=== PATIENT | female | born 2005 | race Caucasian/White ===

== ENCOUNTER 2023-03-31 09:53 | Emergency (ER) | payer OTHER, SELFPAY ==
[2023-03-31 10:01] VITALS: BP 148/90; PULSE 83; RESP 16; TEMP 36.6; O2SAT 99; BMI 34.7
--- NOTE | 2023-03-31 10:07 | US_ITS ---
[address] [address] Patient Name: FELIX ASKEW MRN: [id number] date: 2005 Sex: F Assigned Patient Location: ED.MAIN Current Patient Location: ER Accession/Order Number: [id number] Exam Date: 03/31/2023 10:08 Report Date: 03/31/2023 10:47 At the request of: BENIGNO LAY Procedure: US OB limited EXAMINATION: US OB limited HISTORY: fall , abdominal cramping COMPARISON: 02/05/2023 FINDINGS: position: Cephalic Placenta: Posterior. Grade 0. No intraplacental or retroplacental echogenic abnormality to suggest abruption or hemorrhage Heart rate: 140 bpm Clinical age: 16 weeks 2 days Clinical JOSHUA: 09/13/2023 IMPRESSION: No placental abnormality observed Electronically authenticated by: TAMMI HAQUE Date: 03/31/2023 10:47
[2023-03-31 10:23] LABS: Bilirubin Urine NEGATIVE (NEGATIVE); Blood Urine NEGATIVE (NEGATIVE); Clarity Urine CLEAR (CLEAR); Color Urine LT. YELLOW (YELLOW); Glucose Urine UA NEGATIVE (NEGATIVE); Ketones Urine NEGATIVE (NEGATIVE); Leukocyte Esterase Urine NEGATIVE (NEGATIVE); Nitrite Urine NEGATIVE (NEGATIVE); Protein Urine NEGATIVE (NEG/TRACE); Urobilinogen Urine 0.2 EU/dL (0.2-1.0); pH Urine 7.5 (5.0-9.0)
[2023-03-31 10:24] LABS: Urine Microscopic Indicated NO
--- NOTE | 2023-03-31 10:56 | ED_ITS ---
HPI - Fall General Chief Complaint: Abdominal Pain Stated Complaint: FELL AT WORK LAST NIGHT/ Time Seen by Provider: 03/31/23 10:56 Source: patient Mode of arrival: walk-in Limitations: no limitations History of Present Illness HPI Narrative: this patient is here for evaluation. 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 She fell to her left side and hit the hip and the left elbow. She wanted come in today because she wanted to make sure her baby was okay. She does not believe she sustained any injury and really has no complaints today. She said her elbow really doesn't hurt. She's not having any vaginal bleeding or spotting. She is approximate sixteen weeks and is under the care of a local BUSINESS SERVICES REPRESENTATIVE has not had any complications. She says she just has anxiety and wanted to be sure there is no injury or harm due to the fall yesterday. 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 No evidence craniofacial trauma or injury cognition is normal she does not seem overly anxious. chest wall and ribs are nontender. Extremities so completely unrestricted atraumatic nontender range of motion of the left elbow forearm and shoulder. Abdomen is soft and supple. Left hip area shows no bruises contusions or abrasions. 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 But none of these bruises are new. Constitutional Vital Signs - 24 hr 03/31/23 10:01 Temperature 97.8 F Pulse Rate [Monitor] 83 Respiratory Rate 16 Blood Pressure [Right Arm] 148/90 H Pulse Oximetry 99 Oxygen Delivery Method Room Air Course Vital Signs Vital signs: Vital Signs Temperature 97.8 F 03/31/23 10:01 Pulse Rate 83 03/31/23 10:01 Respiratory Rate 16 03/31/23 10:01 Blood Pressure 148/90 H 03/31/23 10:01 Pulse Oximetry 99 03/31/23 10:01 Oxygen Delivery Method Room Air 03/31/23 10:01 Temperature 97.8 F 03/31/23 10:01 Pulse Rate 83 03/31/23 10:01 Respiratory Rate 16 03/31/23 10:01 Blood Pressure 148/90 H 03/31/23 10:01 Pulse Oximetry 99 03/31/23 10:01 Oxygen Delivery Method Room Air 03/31/23 10:01 MDM - Fall MDM Narrative Medical decision making narrative: pelvic ultrasound was done and shows/confirms intrauterine sixteen weeks in two days with no complications or abnormalities on the ultrasound. A urinalysis was done to rule out asymptomatic bacteriuria and the urinalysis is also normal. She was reassured she can resume normal activities and follow-up with BUSINESS SERVICES REPRESENTATIVE on an as-needed basis. Lab Data Labs: Lab Results 03/31/23 Range/Units 10:15 Urine Color Lt. yellow (YELLOW) Urine Clarity Clear (CLEAR) Urine pH 7.5 (5.0-9.0) Ur Specific [place] 1.010 (1.005-1.025) Urine Protein Negative (NEG/TRACE) mg/dL Urine Glucose (UA) Negative (NEGATIVE) mg/dL Urine Ketones Negative (NEGATIVE) mg/dL Urine Occult Blood Negative (NEGATIVE) Urine Nitrite Negative (NEGATIVE) Urine Bilirubin Negative (NEGATIVE) Urine Urobilinogen 0.2 (0.2-1.0) EU/dL Ur Leukocyte Esterase Negative (NEGATIVE) Discharge Plan Discharge Chief Complaint: Abdominal Pain Clinical Impression: Intrauterine normal Patient Disposition: Home, Self-Care Time of Disposition Decision: 11:00 Stand Alone Forms: Portal Instructions Referrals: Physician,Non-Staff, MD [Primary Care Provider] - 1 week
== END 2023-03-31 11:08 | disposition home or self-care (01) ==
PROVIDERS: Emergency Provider Emergency Medicine Emergency Medical Services
DX: Z04.3 Encounter for examination and observation following other accident (principal)
CPT/HCPCS: 76815; 81003; 99284

== ENCOUNTER 2023-05-06 08:28 | Outpatient (OUT) | payer OTHER, SELFPAY ==
--- NOTE | 2023-05-06 | US_ITS ---
[address] [address] Patient Name: FELIX ASKEW MRN: [id number] date: 2005 Sex: F Assigned Patient Location: US Current Patient Location: US Accession/Order Number: [id number] Exam Date: 05/06/2023 08:31 Report Date: 05/06/2023 09:33 At the request of: GAVIN WINTERS Procedure: US OB transvaginal EXAMINATION: US OB anatomy, US OB transvaginal HISTORY: ANATOMY COMPARISON: No relevant comparison available. TECHNIQUE: Transabdominal sonographic examination was performed for obstetrical and evaluation. FINDINGS: Number: 1 Heart Rate: 156.0 bpm H.B. /min position: Breech presentation, longitudinal lie Amniotic Fluid Volume: Subjectively normal Placental Location: Posterior, placental edge 1.9 cm from the internal os. Grade 0 Cervix Length: 5.7 cm, closed Normal anatomy: Lateral ventricles, cerebellum, posterior fossa, nose/lips, orbits, four-chamber heart, RVOT, LVOT, diaphragm, stomach, kidneys, abdominal cord insertion, bladder, umbilical cord arteries, three-vessel cord, spine, extremities BIOMETRY: BPD: 5.0 cm 21 weeks 0 days , 30% HC: 18.8 cm 21 weeks 1 days, 27% AC: 16.9 cm 21 weeks 6 days, 58% FL: 3.7 cm 21 weeks 4 days, 48% EFW:442.4 grams; 1 lb. 0 oz., 58% FL/AC: 21.7 FL/BPD: 73.9 HC/AC: 1.1 GESTATIONAL AGE: Age by EDC: 21 weeks 3 days JOSHUA by EDC: 09/13/2023 Age by current US: 21 weeks 3 days JOSHUA by current US: 09/13/2023 US/US OB transvaginal IMPRESSION: Low lying placenta, otherwise normal anatomy scan *Reference: [employer] Practice Guideline for the performance of Obstetric Ultrasound Examinations, July 12, 2007. Electronically authenticated by: TAMMI HAQUE Date: 05/06/2023 09:33
--- NOTE | 2023-05-06 | US_ITS ---
[address] [address] Patient Name: FELIX ASKEW MRN: [id number] date: 2005 Sex: F Assigned Patient Location: US Current Patient Location: US Accession/Order Number: [id number] Exam Date: 05/06/2023 08:31 Report Date: 05/06/2023 09:33 At the request of: GAVIN WINTERS Procedure: US OB anatomy EXAMINATION: US OB anatomy, US OB transvaginal HISTORY: ANATOMY COMPARISON: No relevant comparison available. TECHNIQUE: Transabdominal sonographic examination was performed for obstetrical and evaluation. FINDINGS: Number: 1 Heart Rate: 156.0 bpm H.B. /min position: Breech presentation, longitudinal lie Amniotic Fluid Volume: Subjectively normal Placental Location: Posterior, placental edge 1.9 cm from the internal os. Grade 0 Cervix Length: 5.7 cm, closed Normal anatomy: Lateral ventricles, cerebellum, posterior fossa, nose/lips, orbits, four-chamber heart, RVOT, LVOT, diaphragm, stomach, kidneys, abdominal cord insertion, bladder, umbilical cord arteries, three-vessel cord, spine, extremities BIOMETRY: BPD: 5.0 cm 21 weeks 0 days , 30% HC: 18.8 cm 21 weeks 1 days, 27% AC: 16.9 cm 21 weeks 6 days, 58% FL: 3.7 cm 21 weeks 4 days, 48% EFW:442.4 grams; 1 lb. 0 oz., 58% FL/AC: 21.7 FL/BPD: 73.9 HC/AC: 1.1 GESTATIONAL AGE: Age by EDC: 21 weeks 3 days JOSHUA by EDC: 09/13/2023 Age by current US: 21 weeks 3 days JOSHUA by current US: 09/13/2023 US/US OB anatomy IMPRESSION: Low lying placenta, otherwise normal anatomy scan *Reference: [facility] Practice Guideline for the performance of Obstetric Ultrasound Examinations, July 12, 2007. Electronically authenticated by: TAMMI HAQUE Date: 05/06/2023 09:33
== END 2023-05-06 08:29 | disposition home or self-care (01) ==
LOC: US 08:29
PROVIDERS: Visit Provider Obstetrics & Gynecology
DX: O44.42 Low lying placenta NOS or without hemorrhage, second trimester (principal); Z3A.00 Weeks of gestation of pregnancy not specified
CPT/HCPCS: 76805; 76817

== ENCOUNTER 2023-06-12 12:02 | Outpatient (OUT) | payer OTHER, SELFPAY ==
[2023-06-12 13:08] LABS: Basophils Percent Auto 0.2 % (0.2-2.0); Eosinophils Absolute Auto 0.1 10^3/uL (0.0-0.7); Eosinophils Percent Auto 0.7 % (0.9-7.0); Hematocrit 32.8 % (36.0-48.0); Hemoglobin 10.7 g/dL (12.0-16.0); Immature Granulocytes Abs Auto 0.06 10^3/uL (0.00-0.03); Immature Granulocytes Pct Auto 0.6 % (0.0-0.5); Lymphocytes Absolute Auto 1.9 10^3/uL (1.2-3.8); Lymphocytes Percent Auto 20.5 % (20.5-60.0); Mean Corpuscular HGB Conc 32.6 g/dL (29.9-35.2); Mean Corpuscular Hemoglobin 29.6 pg (26.7-34.0); Mean Corpuscular Volume 90.6 fL (81.0-99.0); Mean Platelet Volume 10.6 fL (9.5-13.5); Monocytes Absolute Auto 0.5 10^3/uL (0.3-0.8); Monocytes Percent Auto 5.3 % (1.7-12.0); Neutrophils Absolute Auto 6.8 10^3/uL (1.4-6.5); Neutrophils Percent Auto 72.7 % (43.0-75.0); Platelet Count 193 10^3/uL (150-450); Red Blood Count 3.62 10^6/uL (4.20-5.40); Red Cell Distribution Width 12.2 % (11.0-15.0); White Blood Count 9.4 10^3/uL (4.0-11.0)
[2023-06-12 13:50] LABS: Glucose 1 Hour 137 mg/dL
[2023-06-18 00:06] LABS: AFP Value 156.8 ng/mL (.); Gest. Age on Collection Date 26.7 weeks (.); Gestat. Age Based On Ultrasound (.); Insulin Dep Diabetes No (.); Maternal Age At EDD 20.6 yr (.); OSBR Risk 1 IN See interpretation. (.); Results Report (.)
== END 2023-06-12 12:03 | disposition home or self-care (01) ==
LOC: LAB 12:02
PROVIDERS: Visit Provider Obstetrics & Gynecology
DX: Z34.92 Encounter for supervision of normal pregnancy, unspecified, second trimester (principal)
CPT/HCPCS: 36415; 82105; 82950; 85025

== ENCOUNTER 2023-06-17 10:29 | Outpatient (OUT) | payer OTHER, SELFPAY ==
--- NOTE | 2023-06-17 | US_ITS ---
The [address] [address] Patient Name: FELIX ASKEW MRN: [id number] date: 2005 Sex: F Assigned Patient Location: US Current Patient Location: US Accession/Order Number: [id number] Exam Date: 06/17/2023 10:34 Report Date: 06/17/2023 16:41 At the request of: GAVIN WINTERS Procedure: US OB cervical length EXAM: US OB placenta, US OB cervical length HISTORY: LOW LYING PLACENTA COMPARISON: None. TECHNIQUE: Transabdominal and transvaginal FINDINGS: position: Cephalic presentation, longitudinal lie Placenta: Posterior. No intraplacental or retroplacental echogenic abnormality. The central edge is 4.0 cm from the internal os Heart rate: 135 beats minute Cervix: Closed, 4.9 cm US/US OB cervical length IMPRESSION: Placental edge is 4.0 cm from the internal os Closed cervix measuring 4.9 cm Electronically authenticated by: TAMMI HAQUE Date: 06/17/2023 16:41
--- NOTE | 2023-06-17 10:33 | US_ITS ---
[address] [address] Patient Name: FELIX ASKEW MRN: [id number] date: 2005 Sex: F Assigned Patient Location: US Current Patient Location: US Accession/Order Number: [id number] Exam Date: 06/17/2023 10:34 Report Date: 06/17/2023 16:41 At the request of: GAVIN WINTERS Procedure: US OB placenta EXAM: US OB placenta, US OB cervical length HISTORY: LOW LYING PLACENTA COMPARISON: None. TECHNIQUE: Transabdominal and transvaginal FINDINGS: position: Cephalic presentation, longitudinal lie Placenta: Posterior. No intraplacental or retroplacental echogenic abnormality. The central edge is 4.0 cm from the internal os Heart rate: 135 beats minute Cervix: Closed, 4.9 cm US/US OB placenta IMPRESSION: Placental edge is 4.0 cm from the internal os Closed cervix measuring 4.9 cm Electronically authenticated by: TAMMI HAQUE Date: 06/17/2023 16:41
== END 2023-06-17 10:30 | disposition home or self-care (01) ==
LOC: US 10:29
PROVIDERS: Visit Provider Obstetrics & Gynecology
DX: O44.42 Low lying placenta NOS or without hemorrhage, second trimester (principal)
CPT/HCPCS: 76815; 76817

== ENCOUNTER 2023-07-22 10:59 | Outpatient (OUT) | payer OTHER, SELFPAY ==
--- NOTE | 2023-07-22 11:02 | US_ITS ---
The [address] [address] Patient Name: FELIX ASKEW MRN: [id number] date: 2005 Sex: F Assigned Patient Location: US Current Patient Location: US Accession/Order Number: [id number] Exam Date: 07/22/2023 11:03 Report Date: 07/22/2023 21:50 At the request of: GAVIN WINTERS Procedure: US OB growth EXAMINATION: US OB growth HISTORY: SIZE INCONSISTENT WITH DATES COMPARISON: Ultrasound OB anatomy 05/06/2023 TECHNIQUE: Transabdominal sonographic examination was performed for obstetrical and evaluation. FINDINGS: Number: 1 Heart Rate: 137.0 bpm H.B. /min Amniotic Fluid Volume: 10.6 cm; normal range Placental Location: Not evaluated. Cervix Length: Not measured. BIOMETRY: BPD: 8.1 cm 32 weeks 4 days HC: 29.5 cm 32 weeks 4 days AC: 30.4 cm 34 weeks 2 days FL: 6.5 cm 33 weeks 2 days EFW:2254.0 grams; 79% FL/AC: 21.3 FL/BPD: 79.8 HC/AC: 1.0 GESTATIONAL AGE: Age by EDC: 32 weeks 3 days JOSHUA by EDC: 09/13/2023 Age by current US: 33 weeks 1 days JOSHUA by current US: 09/08/2023 US/US OB growth IMPRESSION: 1. Single live intrauterine with growth detailed above. Electronically authenticated by: GRAZYNA AGOSTO Date: 07/22/2023 21:50
== END 2023-07-22 11:00 | disposition home or self-care (01) ==
LOC: US 11:00
PROVIDERS: Visit Provider Obstetrics & Gynecology
DX: O26.843 Uterine size-date discrepancy, third trimester (principal); Z3A.32 32 weeks gestation of pregnancy
CPT/HCPCS: 76816

== ENCOUNTER 2023-08-19 21:25 | Outpatient (REF) | payer OTHER, SELFPAY | END 2023-08-19 21:26 | disposition home or self-care (01) | LOC: LAB 21:25 | PROVIDERS: Visit Provider Obstetrics & Gynecology | DX: Z34.93 Encounter for supervision of normal pregnancy, unspecified, third trimester (principal) | CPT/HCPCS: 87081 ==

== ENCOUNTER 2023-09-07 15:46 | Inpatient (IN) | payer OTHER, SELFPAY ==
[2023-09-07] VITALS (21 sets, daily range): BP systolic 119–156; BP diastolic 69–116; PULSE 87–112; RESP 16; TEMP 36.1–37.5
[2023-09-07 17:16] LABS: Hematocrit 32.8 % (36.0-48.0); Hemoglobin 10.5 g/dL (12.0-16.0); Mean Corpuscular Hemoglobin 27.5 pg (26.7-34.0); Mean Corpuscular Volume 85.9 fL (81.0-99.0); Mean Platelet Volume 12.7 fL (9.5-13.5); Platelet Count 222 10^3/uL (150-450); Red Blood Count 3.82 10^6/uL (4.20-5.40); Red Cell Distribution Width 13.7 % (11.0-15.0); White Blood Count 10.6 10^3/uL (4.0-11.0)
[2023-09-07 17:27] LABS: Amphetamine Screen Urine NEGATIVE (NEGATIVE); Barbiturates Screen Urine NEGATIVE (NEGATIVE); Benzodiazepines Screen Urine NEGATIVE (NEGATIVE); Buprenorphine Screen Urine NEGATIVE (NEGATIVE); Cannabinoid Screen Urine NEGATIVE (NEGATIVE); Cocaine Screen Urine NEGATIVE (NEGATIVE); Methadone Screen Urine NEGATIVE (NEGATIVE); Methamphetamines Screen Urine NEGATIVE (NEGATIVE); Opiate Screen Urine NEGATIVE (NEGATIVE); Oxycodone Screen Urine NEGATIVE (NEGATIVE); Phencyclidine Screen Urine NEGATIVE (NEGATIVE); Tricyclic Antidepressant Urine NEGATIVE (NEGATIVE)
[2023-09-07] MEDS: DINOPROSTONE 10 MG VAG INSERT.ER VAGINAL (17:44)
--- NOTE | 2023-09-07 19:31 | W.PC.ACHO ---
Registration Status: ADM IN Primary Language: Egyptian Preferred Language: Egyptian Active Medications Generic Name Dose Route Start Last Admin Trade Name Eliazar PRN Reason Stop Dose Admin Carboprost Tromethamine 250 mcg 09/07/23 17:07 Carboprost Tromethamine 250 Mcg/Ml 1 Ml Vial IM 09/09/23 17:08 Q15M PRN Bleeding Sodium Chloride 1,000 mls @ 125 mls/hr 09/07/23 17:15 Sodium Chloride 0.9% 1,000 Ml IV .Q8H OLYA Oxytocin/Sodium Chloride 20 units in 1,000 mls @ 125 mls/hr 09/07/23 18:00 Pitocin 20 Unit/1,000 Ml-Ns IV 09/08/23 01:59 Q8H OLYA Lidocaine 5 ml 09/07/23 17:07 Lidocaine Viscous 2% 15 Ml Solution TOPICAL ONCE PRN Pain Lidocaine 1 ml 09/07/23 17:07 Lidocaine Hcl 1% 200 Mg/20 Ml Mdv INJ ONCE PRN Pain Methylergonovine Maleate 0.2 mg 09/07/23 17:07 Methylergonovine Maleate 0.2 Mg/Ml Ampule IM 09/09/23 17:08 ONCE PRN Uterine Contractility/Contract Methylergonovine Maleate 0.2 mg 09/07/23 17:07 Methylergonovine Maleate 0.2 Mg Tablet PO 09/09/23 17:08 Q4H PRN Uterine Contractility/Contract Misoprostol 600 mcg 09/07/23 17:07 Misoprostol 100 Mcg Tablet PO 09/09/23 17:08 ONCE PRN Uterine Bleeding Misoprostol 800 mcg 09/07/23 17:07 Misoprostol 100 Mcg Tablet SL 09/09/23 17:08 ONCE PRN Uterine Bleeding Misoprostol 1,000 mcg 09/07/23 17:07 Misoprostol 100 Mcg Tablet NJ 09/09/23 17:08 ONCE PRN Uterine Bleeding Ondansetron HCl 4 mg 09/07/23 17:07 Ondansetron Pf 4 Mg/2 Ml Vial IV Q6H PRN Nausea And Vomiting Ondansetron HCl 4 mg 09/07/23 17:07 Ondansetron 4 Mg Rapdis Tablet SL Q6H PRN Nausea And Vomiting Oxytocin 10 unit 09/07/23 17:07 Oxytocin 10 Unit/Ml Vial IM 09/09/23 17:08 ONCE PRN Nausea Diet Category Date Time Status Regular Consistency Diet Diet 09/07/23 17:09 Active IV Insertion/Site Date of IV Line Insertion [20g 09/07/23 left Forearm] IV Insertion Time [20g left 16:30 Forearm] Neurology Patient orientation (short person,place,time,situation list) Respiratory Oxygen Delivery Method Room Air
[2023-09-08] VITALS (38 sets, daily range): BP systolic 112–176; BP diastolic 55–113; PULSE 78–139; RESP 16–18; TEMP 36.2–37.2; O2SAT 97–98
[2023-09-08] MEDS: 0.9 % SODIUM CHLORIDE 1,000 ML 125 ML IV ×3 (06:35→10:52)
[2023-09-08] MEDS: ROPIVACAINE HCL/PF 400 MG/200 ML PREMIX 6 MG EPIDURAL (08:07)
[2023-09-08] MEDS: FENTANYL CITRATE/PF 100 MCG/2 ML VIAL EPIDURAL ×2 (08:09→08:10)
[2023-09-08] MEDS: CEFAZOLIN SODIUM/DEXTROSE,ISO 2 GM/50 ML PIGGYBACK IV (11:10)
--- NOTE | 2023-09-08 12:06 | PM.ONB ---
Brief Operative Note Date of procedure: 09/08/23 Pre-op diagnosis: iup at 39wks, recurrent decelerations Post-op diagnosis: same as pre-op Procedure: NAME OF PROCEDURE: [ section ] PROCEDURE: Patient was taken back to the Operating Room where she was given a spinal anesthesia with Duramorph without difficulty. She was prepped and draped in the normal sterile fashion. A Pfannenstiel skin incision was then made 2 cm above the symphysis pubis and carried down to underlying rectus fascia using a Bovie. The fascia was incised in the midline and extended laterally using Vilalgomez scissors. Two Jana clamps were placed on the superior aspect of the fascia and dissected off the underlying rectus muscles. The same was performed on the inferior aspect as well. The muscles were then in the midline. Peritoneum was identified and entered bluntly. The peritoneum was then extended superiorly and inferiorly with good visualization of the bladder. The bladder blade was inserted. A low transverse incision was made on the patient's uterus and extended laterally digitally. The infant was then delivered atraumatically after the bladder blade was removed in the cephalic position. The cord was clamped and cut. Cord blood was obtained. The was handed off to awaiting team. The patient's placenta was spontaneously delivered. The uterus was then exteriorized. The uterus was cleared of all clots and debris. The bladder blade was reinserted. The patient's uterine incision was closed using #0 Vicryl in a running lock fashion. Excellent hemostasis was assured. The uterus was then returned to the patient's abdomen. The patient's abdomen was copiously irrigated using warm saline. Peritoneal gutters were cleared of all clots and debris. Again excellent hemostasis was assured. The patient's peritoneum was closed using 3-0 Vicryl in a running fashion. The patient's fascia was closed using #0 Vicryl in a running fashion. The patient's skin was closed using 4-0 Vicryl subcuticularly. The patient tolerated the procedure well. Sponge, lap, and needle counts were correct x2. The patient was taken to the Recovery Room in stable condition. Anesthesia: spinal Surgeon: Joss Wright Certified Teacher Assistant: Chayito Vargas Estimated blood loss (mL): 600 Pathology: other (placenta) Condition: stable Disposition: floor
--- NOTE | 2023-09-08 12:09 | P.OBPRC_ITS ---
Procedure Pre-op/Post-op diagnoses: Pre-Op/Post-Op Diagnoses Operation Date: 09/08/23 11:00 <No data on this case meets the specified criteria> Procedure: Procedures Operation Date: 09/08/23 11:00 Actual Procedure Side Surgeon p Not Applicable Joss Wright DO Retina Subspecialist: Chayito Vargas Disposition: PACU Anesthesia type: Spinal
[2023-09-08] MEDS: OXYTOCIN/0.9 % SODIUM CHLORIDE 20 UNITS/1,000 ML PLAST..BAG 125 UNIT IV (14:14)
[2023-09-08] MEDS: KETOROLAC TROMETHAMINE 30 MG/ML VIAL IVP ×2 (15:08→22:36)
[2023-09-08] MEDS: CEFAZOLIN SODIUM 2,000 MG in 0.9 % SODIUM CHLORIDE 50 ML 100 MG IV (17:29)
[2023-09-09] VITALS (11 sets, daily range): BP systolic 125–147; BP diastolic 73–100; PULSE 87–110; RESP 16–18; TEMP 36.2–37.2; O2SAT 98
[2023-09-09] MEDS: ENOXAPARIN SODIUM 40 MG/0.4 ML SYRINGE SUBQ (00:46)
[2023-09-09] MEDS: IBUPROFEN 400 MG TABLET 800 MG PO ×3 (05:40→22:27)
[2023-09-09 06:08] LABS: Basophils Percent Auto 0.3 % (0.2-2.0); Eosinophils Percent Auto 0.1 % (0.9-7.0); Hemoglobin 8.7 g/dL (12.0-16.0); Immature Granulocytes Pct Auto 0.7 % (0.0-0.5); Lymphocytes Absolute Auto 1.8 10^3/uL (1.2-3.8); Lymphocytes Percent Auto 12.7 % (20.5-60.0); Mean Corpuscular HGB Conc 31.1 g/dL (29.9-35.2); Mean Corpuscular Hemoglobin 27.4 pg (26.7-34.0); Mean Corpuscular Volume 88.1 fL (81.0-99.0); Mean Platelet Volume 12.5 fL (9.5-13.5); Monocytes Percent Auto 7.2 % (1.7-12.0); Platelet Count 187 10^3/uL (150-450); Red Blood Count 3.18 10^6/uL (4.20-5.40); Red Cell Distribution Width 13.9 % (11.0-15.0)
--- NOTE | 2023-09-09 07:43 | P.OBPN_ITS ---
OB - PN: Subj Subjective Patient comments: no complaints and pain well controlled [place] status: doing well Exam Constitutional Vital Signs, click to edit/add: Last Vital Signs Temp 98.9 F 09/09/23 05:00 Pulse 107 H 09/09/23 05:00 Resp 16 09/09/23 05:00 BP 136/97 H 09/09/23 05:00 Pulse Ox 98 09/09/23 05:00 O2 Del Method Room Air 09/09/23 05:00 Documenting provider has reviewed patient's vital signs: yes Common normals: no apparent distress Respiratory Common normals: normal respiratory effort and clear to auscultation bilaterally Cardio Common normals: regular rate and regular rhythm GI Common normals: Normal to inspection, nondistended, normoactive bowel sounds present Extremity Common normals: no calf tenderness Results Labs Labs: Short CBC 09/09/23 Range/Units 05:46 WBC 14.0 H (4.0-11.0) 10^3/uL Hgb 8.7 L (12.0-16.0) g/dL Hct 28.0 L (36.0-48.0) % Plt Count 187 (150-450) 10^3/uL OB - PN: A/P Plan - day: 1 Plan: routine postop care Time Spent with Patient Time: Total time spent is greater than 50% in coordination of care (as documented) at patient's floor/unit and/or counseling patient: Total time spent with greater than 50% in coordination of care (as documented) at patient's floor/unit and/or counseling patient: less than 15 minutes
[2023-09-09] MEDS: DOCUSATE SODIUM 100 MG CAPSULE PO ×2 (09:43→22:28)
--- NOTE | 2023-09-09 11:28 | PC.NURSE ---
Patient rubella non immune, VIS given to patient..
[2023-09-09] MEDS: SIMETHICONE 80 MG TAB.CHEW PO ×2 (12:59→17:40)
--- NOTE | 2023-09-09 13:05 | PC.NURSE ---
compaints of gas pain in right shoulder, Mylicon given.
--- NOTE | 2023-09-09 15:28 | PC.NURSE ---
abdominal incision dressing removed, incision TREY with steri strips intact
--- NOTE | 2023-09-09 16:56 | PC.NURSE ---
1645 Patient complaints feeling hot and lightheaded Cold washcloth applied to neck , VS taken.
--- NOTE | 2023-09-09 17:54 | PC.NURSE ---
1730 Dr. Wright aware of patients complaints of faintness and elevated BP. Will continue to monitor.
[2023-09-10] VITALS (7 sets, daily range): BP systolic 126–149; BP diastolic 68–91; PULSE 88–99; RESP 16–18; TEMP 36.8; O2SAT 98
[2023-09-10] MEDS: ENOXAPARIN SODIUM 40 MG/0.4 ML SYRINGE SUBQ (00:24)
--- NOTE | 2023-09-10 05:37 | PM.OBPN ---
OB - PN: Subj Subjective Patient comments: no complaints and pain well controlled [place] status: doing well Exam Constitutional Vital Signs, click to edit/add: Last Vital Signs Temp 98.6 F 09/09/23 22:10 Pulse 99 H 09/10/23 00:26 Resp 16 09/10/23 00:26 BP 126/68 09/10/23 00:26 Pulse Ox 98 09/09/23 08:13 O2 Del Method Room Air 09/09/23 22:12 Documenting provider has reviewed patient's vital signs: yes Common normals: no apparent distress Respiratory Common normals: normal respiratory effort and clear to auscultation bilaterally Cardio Common normals: regular rate and regular rhythm GI Common normals: Normal to inspection, nondistended, normoactive bowel sounds present Extremity Common normals: no calf tenderness Results Labs Labs: Short CBC 09/09/23 Range/Units 05:46 WBC 14.0 H (4.0-11.0) 10^3/uL Hgb 8.7 L (12.0-16.0) g/dL Hct 28.0 L (36.0-48.0) % Plt Count 187 (150-450) 10^3/uL OB - PN: A/P Plan - day: 2 Plan: routine postop care, discharge home and follow up 6 weeks Time Spent with Patient Time: Total time spent is greater than 50% in coordination of care (as documented) at patient's floor/unit and/or counseling patient: Total time spent with greater than 50% in coordination of care (as documented) at patient's floor/unit and/or counseling patient: less than 15 minutes
[2023-09-10] MEDS: IBUPROFEN 400 MG TABLET 800 MG PO ×2 (07:33→16:32)
[2023-09-10] MEDS: DOCUSATE SODIUM 100 MG CAPSULE PO (09:51)
--- NOTE | 2023-09-20 | DS_ITS ---
DISCHARGE DATE: 09/20/2023 PRIMARY DIAGNOSES: 1. Intrauterine at 39 weeks. 2. Recurrent decelerations. PROCEDURE: section. HOSPITAL COURSE: As expected. Please see chart for full details. LABORATORY DATA: Please see chart. COMPLICATIONS: None. DISCHARGE CONDITION: Stable. CONSULTATION: Anesthesia. DISCHARGE INSTRUCTIONS: 1. Diet: Regular. 2. Medications: a. Percocet 5/325 one to two p.o. every 4-6 hours p.r.n. pain. b. Motrin 800 one p.o. every 8 hours p.r.n. pain. 3. Followup in one week. Restrictions: Pelvic rest for 6 weeks. No heavy lifting. May drive when pain free and no longer on narcotics. MTDD
== END 2023-09-10 17:30 | disposition home or self-care (01) | DRG 788 ==
PROVIDERS: Admitting Provider Obstetrics & Gynecology; Visit Provider Obstetrics & Gynecology
PROC: 10D00Z1 Extraction of Products of Conception, Low, Open Approach (ICD-10-PCS; CPT 59514; principal; 2023-09-08 11:00)
DX: O76 Abnormality in fetal heart rate and rhythm complicating labor and delivery (principal); Z3A.39 39 weeks gestation of pregnancy; Z37.0 Single live birth; Z87.891 Personal history of nicotine dependence
CPT/HCPCS: 36415; 51702; 59050; 80307; 85025; 85027; 86850; 86900; 86901; 88307; 96372; 96374

== ENCOUNTER → 2023-09-15 16:06 | Outpatient (OUT) | payer OTHER, SELFPAY ==
[2023-09-15 16:12] VITALS: RESP 18
[2023-09-15 16:16] VITALS: BP 128/88; TEMP 36.7
== END | disposition home or self-care (01) ==
LOC: FBCO 16:07
PROVIDERS: Visit Provider Obstetrics & Gynecology
DX: Z39.2 Encounter for routine postpartum follow-up (principal)

== ENCOUNTER 2023-11-16 19:01 | Emergency (ER) | payer OTHER, SELFPAY ==
[2023-11-16] VITALS (16 sets, daily range): BP systolic 150–180; BP diastolic 85–116; PULSE 78–104; RESP 7–27; TEMP 36.7; O2SAT 98–100; BMI 40.5
--- NOTE | 2023-11-16 19:20 | PC.NURSE ---
Pt reports being seen 2 weeks ago at urgent care for persistent SOB and URI symptoms, dx with bronchitics and placed on prednisone. Pt unable to take prednisone due to GI upset. Pt has persistent pressure in center of chest. Denies cough. Pt has hx anxiety. 2 months post .
--- OUTSIDE RECORDS SUMMARY | 2023-11-16 19:28 | XMS_ITS | CCD ---
Author Name Unknown Address [address] [place] [address] Organization [facility] Care Team Providers Care Speech Language Pathologist Prn Name Role Phone NON STAFF Primary Care Provider UnavailDO Cory Lazo Emergency Provider [phone] Lela Zavala Admitting Unavailable Karen Smith Primary Care Unavailable Lela Zavala Attending Unavailable NON STAFF Primary Care Unavailable Cory Lala Attending Unavailable Cory Lala Admitting Unavailable Jayson Perea Attending Unavailable Jayson Perea Admitting Unavailable NON STAFF Primary Care Unavailable Sally YOLK SPRAY DRIER-JEN Krishna Emergency Provider MD Karen Smith Primary Care Provider Michael Wilson Unavailable VIANEY ., DR ALONSO Attending Unavailable SMITH ., DR KAREN Krishna Primary Care Unavailable VIANEY ., DR ALONSO Admitting Unavailable VIANEY ., DR ALONSO Consulting Unavailable JENNIFFEREBER, DR GRAZYNA Salgado Consulting Unavailable REQUEST, DR LONG LISTED Consulting Unavaila ble VIANEY ., DR ALONSO Attending Unavailable VIANEY ., DR ALONSO Admitting Unavailable REQUEST, DR LONG LISTED Primary Care Unavaila ble VIANEY ., DR ALONSO Consulting Unavailable VIANEY ., DR ALONSO Attending Unavailable VIANEY ., DR ALONSO Admitting Unavailable CLINTON ., DR KAREN Krishna Primary Care Unavailable VIANEY ., DR ALONSO Consulting Unavailable ERAN CASTELLANOS Attending Unavailable ERAN CASTELLANOS Attending Unavailable TORSTEN GOVEA Attending Unavailable ERAN CASTELLANOS Attending Unavailable ERAN CASTELLANOS Attending Unavailable Medications Current Medications Medication Drug Class(es) Dates Sig (Normalized) Sig (Original) amoxicillin 500 mg oral tablet (1 source) Penicillin-class Antibacterial Start: 10-04-2022 take 500 mg by mouth twice daily Amoxicillin Active 500 MG PO Twice daily 31 07October 04, 2022 12:00am cefdinir 300 mg oral capsule (1 source) Cephalosporin Antibacterial Start: 10-21-2022 take 1 capsule by mouth every twelve hours Cefdinir 300 MG 1 capsule Orally every 12 hrs for 10 day(s) Oct, Active Levonorgestrel-Eth inyl Estrad (2 sources) Progestin, Estrogen, Progestin-containing Intrauterine Device Start: 06-04-2022 take 1 tablet by mouth once daily Levonorgestrel-Et hinyl Estrad (Vienva) 0.1-20 mg-mcg tablet Active 1 TAB PO Daily June 03, 2022 11:00pm Start: 06-04-2022 take 1 tablet by cherri th once daily Levonorgestrel-Ethinyl Estrad (Vienva) 0.1-20 mg-mcg tablet Active 1 TAB PO Daily June 04, 2022 12:00am ibuprofen 800 mg oral tablet (1 source) Nonsteroidal Anti-inflammatory Drug Start: 10-04-2022 take 800 mg by mouth every six hours Ibuprofen Active 800 MG PO Q6H October 04, 2022 12:00am omeprazole 20 mg delayed release oral capsule (2 sources) Proton Pump Inhibitor Start: 06-04-2022 take 20 mg by mouth once daily Omeprazole Active 20 MG PO Daily June 03, 2022 11:00pm pantoprazole 40 mg delayed release oral tablet (2 sources) Proton Pump Inhibitor Start: 06-04-2022 take 1 tablet by mouth once daily Pantoprazole (Protonix) 40 mg tablet,delayed release (DR/EC) Active 40 MG PO Daily June 03, 2022 11:00pm Problems Active Problems Problem Classification Problem Date Documented Da te Episodic/Chronic Coagulation and hemorrhagic disorders (1 source) Coagulation defect, unspecified; Translations: [COAGULATION DEFECT UNSPECIFIED] Onset: 02-12-2023 Chronic Gastritis and duodenitis (2 sources) Gastritis; Translations: [Gastritis, unspecified, without bleeding] 06-04-2022 Episodic Menstrual disorders (4 sources) Irregular menstruation, unspecified; Translations: [IRREGULAR MENSTRUATION UNSPECIFIED] Onset: 02-05-2023 Chronic Other and delivery including normal (5 sources) Encounter for supervision of other normal , first trimester; Translations: [Encounter for supervision of normal , unspecified, first trimester] Onset: 02-09-2023 Episodic Other upper respiratory infections (2 sources) Acute pharyngitis, unspecified; Translations: [Streptococcal pharyngitis] Episodic Otitis media and related conditions (1 source) Otitis media; Translations: [Otitis media, unspecified, unspecified ear] 10-04-2022 Episodic Residual codes; unclassified (1 source) 9 weeks gestation of ; Translations: [9 WEEKS GESTATION OF ] Onset: 02-09-2023 Episodic Unclassified (1 source) Z20.822 - Contact with and (suspected) exposure to COVID-19; Translations: [Z20.822 - Contact with and (suspected) exposure to COVID-19] Onset: 10-13-2021 Past or Other Problems Problem Classification Problem Date Documented Da te Episodic/Chronic Abdominal pain (1 source) Epigastric pain; Translations: [Epigastric pain] Onset: 06-04-2022 Episodic Nausea and vomiting (1 source) Nausea; Translations: [Nausea] Onset: 06-04-2022 Episodic Results Test Name Value Interpretation Reference Range Facility TSHon 03-10-2023 TSH 2.983 uIU/mL Normal 0.358-3.740 [facility] Comment on above: Performed By: #### D RVV #### [facility] [address] [place] [address] Dr. Paola Olivas B-2 GLYCOPROTEIN AB IGGon Beta-2 Glycoprotein I Ab, IgG <9 Normal 0-20 [facility] Comment on above: Result Comment: The reference interval reflects a 3SD or 99th percentile interval, which is thought to represent a potentially clinically significant result in accordance with the International Consensus Statement on the classification criteria for definitive antiphospholipid syndrome (APS). J Thromb Haem 2006;4:295-306. Performed By: #### B 2GPG #### [facility] [address] [address] [address] Paola Olivas FACTOR V LEIDEN MUTATION ANTHONY LYSISon 02-11-2023 Factor V Leiden Comment Abnormal [facility] Comment on above: Result Comment: Resu lt: c.1601G>A (p.[id number]) - Detected, Heterozygous . This result is associated with a 6- to 8-fold increased risk for venous thromboembolism. See Additional Clinical Information and Comments. Additional Clinical Information: Venous thromboembolism is a multifactorial disease influenced by genetic, environmental, and circumstantial risk factors. The c.1601G>A (p. [id number]) variant in the F5 gene, commonly referred to as Factor V Leiden, is a genetic risk factor for venous thromboembolism. Heterozygous carriers of this variant have a 6- to 8-fold increased risk for venous thromboembolism. Individuals homozygous for this variant (ie, with a copy of the variant on each chromosome) have an approximately 80-fold increased risk for venous thromboembolism. Individuals who carry both a c.*97G>A variant in the F2 gene and Factor V Leiden have an approximately 20-fold increased risk for venous thromboembolism. Risks are likely to be even higher in more complex genotype combinations involving the F2 c.*97G>A variant and Factor V Leiden (PMID: [id number]). Additional risk factors include but are not limited to: deficiency of protein C, protein S, or antithrombin III, age, male sex, personal or family history of deep vein thromboembolism, smoking, surgery, prolonged immobilization, malignant neoplasm, tamoxifen treatment, raloxifene treatment, oral contraceptive use, hormone replacement therapy, and . Management of thrombotic risk and thrombotic events should follow established guidelines and fit the clinical circumstance. This result cannot predict the occurrence or recurrence of a thrombotic event. . Comment: Genetic counseling is recommended to discuss the potential clinical implications of positive results, as well as recommendations for testing family members. . Genetic Coordinators are available for health care providers to discuss results at [phone] ([phone]). . Test Details: Variant Analyzed: c.1601G>A (p. [id number]), referred to as Factor V Leiden . Methods/Limitations: DNA analysis of the F5 gene (NM_000130.5) was performed by PCR amplification followed by restriction enzyme analysis. The diagnostic sensitivity is >99%. Results must be combined with clinical information for the most accurate interpretation. Molecular-based testing is highly accurate, but as in any laboratory test, diagnostic errors may occur. False positive or false negative results may occur for reasons that include genetic variants, blood transfusions, bone marrow transplantation, somatic or tissue-specific mosaicism, mislabeled samples, or erroneous representation of family relationships. . This test was developed and its performance characteristics determined by [facility]. It has not been cleared or approved by the Food and Drug Administration. . References: Dustin S, Eva LINDSEY, Alcides R, Judi WW, Jaswinder JH; ACMG Professional Practice and Guidelines Committee. Addendum: [employer] consensus statement on factor V Leiden mutation testing. Bozena Med. 2020Dec 14. doi: 10.1038/v47663-936-43287-a. PMID: 89286909. . Elena MARIE. Factor V Leiden Thrombophilia. 1998February 22 (Updated 2017Oct 15). In: Ephraim MP, Casey HH, Clifford RA, et al., editors. Jocelyne(R) (Internet). [place] ([place]): [facility]; 9654-5636. Available from: https://www.ncbi.nlm.nih.gov/books/IZR8528/ . Shola S, Eva LINDSEY, Luis X, Dominick B, Sandra EB, Nickie P, Seema CS; [employer] Laboratory Machine Tool Electrician Committee. Venous thromboembolism laboratory testing (factor V Leiden and factor II c.*97G>A), 2018 update: a technical standard of the [employer] and [employer] (ACMG). Bozena Med. 2018 Sep;20(12):0020-9302. doi: 10.1038/i60450-679-8351-q. Epub 2017Jul 16. PMID: 55767519. . Sudha Munguia, PhD, FACMG Frances Minor, PhD Joseph Drew, PhD, FACMG Andrey Oneil, PhD, FACMG Kirill Lentz, PhD, FACMG Rip Jack, PhD, FACMG Vera Whelan, PhD, FACMG Anjelica Seo, PhD, FAC Performed By: #### D RVV #### [facility] [address] [place] [address] Dr. Paola Olivas DILUTE ROSLYN'S VIPER VENOM on 02-10-2023 DRVVT Confirm Seconds NIY Normal [facility] Comment on above: Result Comment: Test ing Not Indicated Performed By: #### D RVV #### [facility] [address] [address] [address] Paola Olivas DRVVT Ratio NIY Normal [facility] Comment on above: Result Comment: Test ing Not Indicated Performed By: #### D RVV #### [facility] [address] [address] [address] Paola Olivas DRVVT Screen Seconds 44.2 sec Normal [facility] Comment on above: Result Comment: Refe rence Range: <= 47.0 Performed By: #### D RVV #### [facility] [address] [address] [address] Paola Olivas ANTITHROMBIN DEFICIENCY PROF on 02-09-2023 Antithrombin Activity 101 % Normal 75-135 [facility] Comment on above: Result Comment: Dire ct Xa inhibitor anticoagulants such as rivaroxaban, apixaban and edoxaban will lead to spuriously elevated antithrombin activity levels possibly masking a deficiency. Performed By: #### H CVPCRR #### [facility] [address] [address] [address] Paola Olivas Antithrombin Antigen 81 % Normal 72-124 [facility] Comment on above: Result Comment: This test was developed and its performance characteristics determined by [employer]. It has not been cleared or approved by the Food and Drug Administration. Performed By: #### H CVPCRR #### [facility] [address] [address] [address] Paola Olivas B2-GLYCOPROTEIN 1 AB IGMon 0 02-09-2023 Beta-2 Glycoprotein I Ab, IgM <9 Normal 0-32 [facility] Comment on above: Result Comment: The reference interval reflects a 3SD or 99th percentile interval, which is thought to represent a potentially clinically significant result in accordance with the International Consensus Statement on the classification criteria for definitive antiphospholipid syndrome (APS). J Thromb Haem 2006;4:295-306. Performed By: #### B GLYIGM #### [facility] [address] [place] [address] Dr. Paola Olivas PROTEIN C FUNC ACTIVITYon Protein C-Functional 98 % Normal 73-180 [facility] Comment on above: Performed By: #### P RCFACT #### [facility] [address] [place] [address] Dr. Paola Olivas PROTEIN S, FREEon 02-09-2023 Protein S, Free 70 % Normal 61-136 [facility] Comment on above: Performed By: #### P ROTSFR #### [facility] [address] [place] [address] Dr. Paola Olivas ANTICARDIOLIPIN AB (ADELAIDE) IGG on 02-07-2023 Anticardiolipin Ab,IgG,Qn <9 Normal 0-14 [facility] Comment on above: Result Comment: Nega tive: <15 Indeterminate: 15 - 20 Low-Med Positive: >20 - 80 High Positive: >80 Performed By: #### C ARDLIP #### [facility] [address] [place] [address] Dr. Paola Olivas ANTICARDIOLIPIN AB (ADELAIDE) IGM on 02-07-2023 Anticardiolipin Ab,IgM,Qn 36 MPL U/mL Critically high 0-12 [facility] Comment on above: Result Comment: Nega tive: <13 Indeterminate: 13 - 20 Low-Med Positive: >20 - 80 High Positive: >80 Performed By: #### H CVPCRR #### [facility] [address] [place] [address] Dr. Paola Olivsa HEP B SURFACE ANTIGEN SCREEN on 02-07-2023 HBsAg Screen Negative Normal Negative [facility] Comment on above: Performed By: #### H CVPCRR #### [facility] [address] [place] [address] Dr. Paola Olivas HEPATITIS C VIRUS AB W/ REFL EX QUANTon 02-07-2023 HCV AB Non-Reactive Normal Non Reactive [facility] Comment on above: Performed By: #### H CVPCRR #### [facility] [address] [place] [address] Dr. Paola Olivas Interpretation: Comment Normal [facility] Comment on above: Result Comment: Not infected with HCV unless early or acute infection is suspected (which may be delayed in an immunocompromised individual), or other evidence exists to indicate HCV infection. Performed By: #### H CVPCRR #### [facility] [address] [address] [address] Paola Olivas HIV 1 AND 2 WITH REFLEXon HIV Screen 4th Generation wRfx Non-Reactive Normal Non Reactive [facility] Comment on above: Result Comment: HIV Negative HIV-1/HIV-2 antibodies and HIV-1 p24 antigen were NOT detected. There is no laboratory evidence of HIV infection. Performed By: #### H CVPCRR #### [facility] [address] [address] [address] Paola Olivas RPR QUANTon 02-07-2023 Rapid Plasma Reagin, Quant Non-Reactive Normal NonRea<1:1 [facility] Comment on above: Result Comment: Plea se Note: This test does not meet current guidelines for screening and diagnosis of syphilis. This test is intended for following treatment response in patients being treated for syphilis infection. To screen for syphilis infection, a reflex cascade that includes both RPR and a treponema-specific assay should be utilized, such as Treponema pallidum (Syphilis) Screening [facility] (151461) or Rapid Plasma Reagin (RPR) Test With Reflex to Quantitative RPR and Confirmatory Treponema pallidum Antibodies (393277). Performed By: #### H CVPCRR #### [facility] [address] [place] [address] Dr. Paola Olivas RUBELLA AB IGGon 02-07-2023 Rubella Antibodies, IgG <0.90 Critically low Immune >0.99 [facility] Comment on above: Result Comment: Non- immune <0.90 Equivocal 0.90 - 0.99 Immune >0.99 Performed By: #### R UBIGG #### [facility] [address] [address] [address] Paola Olivas BOX TEST SENT OUTon 02-07-20 SENT TO REF LAB 2023 Normal [facility] Comment on above: Performed By: #### H CVPCRR #### [facility] [address] [place] [address] Dr. Paola Olivas CBC AUTO DIFFon 2023 BASO # 0.0 103/ul Normal 0.0-0.1 [facility] Comment on above: Performed By: #### C BC #### [facility] [address] [place] [address] Dr. Paola Olivas Basophils/100 WBC (Bld) 0.2 % Normal 0.2-2.0 [facility] Comment on above: Performed By: #### C BC #### [facility] [address] [place] [address] Dr. Paola Olivas EO # 0.1 103/ul Normal 0.0-0.7 [facility] Comment on above: Performed By: #### C BC #### [facility] [address] [place] [address] Dr. Paola Olivas Eosinophils/100 WBC (Bld) 0.5 % Critically low 0.9-7.0 [facility] Comment on above: Performed By: #### C BC #### [facility] [address] [place] [address] Dr. Paola Olivas Erythrocyte distribution width (RBC) [Ratio] 12.9 % Normal 11.0-15.0 [facility] Comment on above: Performed By: #### C BC #### [facility] [address] [place] [address] Dr. Paola Olivas Hematocrit (Bld) [Volume fraction] 34.5 % Critically low 36.0-48.0 [facility] Comment on above: Performed By: #### C BC #### [facility] [address] [place] [address] Dr. Paola Olivas Hemoglobin (Bld) [Mass/Vol] 11.6 g/dL Critically low 12.0-16.0 [facility] Comment on above: Performed By: #### C BC #### [facility] [address] [place] [address] Dr. Paola Olivas IG # 0.03 10e3/ul Normal 0.00-0.03 [facility] Comment on above: Performed By: #### C BC #### [facility] [address] [place] [address] Dr. Paola Olivas IG % 0.3 % Normal 0.0-0.5 [facility] Comment on above: Performed By: #### C BC #### [facility] [address] [place] [address] Dr. Paola Olivas LYMPH # 1.8 103/ul Normal 1.2-3.8 [facility] Comment on above: Performed By: #### C BC #### [facility] [address] [place] [address] Dr. Paola Olivas Lymphocytes/100 WBC (Bld) 18.5 % Critically low 20.5-60.0 [facility] Comment on above: Performed By: #### C BC #### [facility] [address] [place] [address] Dr. Paola Olivas MANUAL DIFF REQ NO Normal [facility] Comment on above: Performed By: #### C BC #### [facility] [address] [place] [address] Dr. Paola Olivas MCH (RBC) [Entitic mass] 29.6 pg Normal 26.7-34.0 [facility] Comment on above: Performed By: #### C BC #### [facility] [address] [place] [address] Dr. Paola Olivas MCHC (RBC) [Mass/Vol] 33.6 g/dL Normal 29.9-35.2 [facility] Comment on above: Performed By: #### C BC #### [facility] [address] [place] [address] Dr. Paola Olivas MCV (RBC) [Entitic vol] 88.0 fL Normal 81.0-99.0 [facility] Comment on above: Performed By: #### C BC #### [facility] [address] [place] [address] Dr. Paola Olivas MONO # 0.9 103/ul Critically high 0.3-0.8 [facility] Comment on above: Performed By: #### C BC #### [facility] [address] [place] [address] Dr. Paola Olivas Monocytes/100 WBC (Bld) 9.3 % Normal 1.7-12.0 [facility] Comment on above: Performed By: #### C BC #### [facility] [address] [place] [address] Dr. Paola Olivas NEUT # 6.8 103/ul Critically high 1.4-6.5 [facility] Comment on above: Performed By: #### C BC #### [facility] [address] [place] [address] Dr. Paola Olivas Neutrophils/100 WBC (Bld) 71.2 % Normal 43.0-75.0 [facility] Comment on above: Performed By: #### C BC #### [facility] [address] [place] [address] Dr. Paola Olivas Platelet mean volume (Bld) [Entitic vol] 10.9 fL Normal 9.5-13.5 [facility] Comment on above: Performed By: #### C BC #### [facility] [address] [place] [address] Dr. Paola Olivas PLT 214 103/ul Normal 150-450 [facility] Comment on above: Performed By: #### C BC #### [facility] [address] [place] [address] Dr. Paloa Olivas RBC 3.92 106/ul Critically low 4.20-5.40 [facility] Comment on above: Performed By: #### C BC #### [facility] [address] [place] [address] Dr. Paola Olivas WBC 9.5 103/ul Normal 4.0-11.0 [facility] Comment on above: Performed By: #### C BC #### [facility] [address] [place] [address] Dr. Paola Olivas CULTURE URINEon 2023 CULTURE URINE Culture Observations: MODERATE GROWTH OF MIXED GENITAL GUSTAVO. NO POTENTIAL PATHOGENS SEEN. Normal [facility] Comment on above: Performed By: #### H CVPCRR #### [facility] [address] [place] [address] Dr. Paola Olivas GLYCOHEMOGLOBIN A1Con 2022 ADA RECOMMENDATION SEE BELOW Normal [facility] Comment on above: Result Comment: ADA RECOMMENDED LIMIT 4.0 - 6.0 ADA THERAPEUTIC TARGET < 7.0 ACTION SUGGESTED > 7.0 Performed By: #### H CVPCRR #### [facility] [address] [address] [address] Paola Olivas Glucose [Mass/Vol] 94 mg/dL Normal [facility] Comment on above: Performed By: #### H CVPCRR #### [facility] [address] [address] [address] Paola Olivas HbA1c (Bld) [Mass fraction] 4.9 % Normal 4.5-6.2 [facility] Comment on above: Performed By: #### H CVPCRR #### [facility] [address] [place] [address] Dr. Paola Olivsa TSHon 2023 TSH 4.338 uIU/mL Critically high 0.516-4.130 [facility] Comment on above: Performed By: #### T SH #### [facility] [address] [place] [address] Dr. Paola Olivas TYPE AND SCREENon 2023 TYPE AND SCREEN Negative Normal [facility] Comment on above: Performed By: #### H CVPCRR #### [facility] [address] [place] [address] Dr. Paola Olivas US PREG TVon 02-05-2023 US PREG TV EXAMINATION: US PREG TV HISTORY: Missed period COMPARISON: No relevant comparison available. FINDINGS: GESTATIONAL SAC: Present and normal appearing. YOLK SAC: Present and normal appearing. POLE: Present and normal appearing. CARDIAC: Present. UTERUS: Normal size and appearance. OVARIES: Right: Corpus lutein cyst. Left: Not seen. CERVIX: 4.2 cm in length and closed. CUL-DE-SAC: Normal. OTHER: None. AGE BY LMP: 9 weeks 3 days JOSHUA BY LMP: 09/07/2023 AGE BY US CRL: 8 weeks 4 days JOSHUA BY US CRL: 09/13/2023 IMPRESSION: 1. Single live intrauterine . Electronically authenticated by: GRAZYNA AGOSOT Date: 2023-02-05 16:00 Normal [facility] Quick Strepon 10-21-2022 S. pyogenes Org specific cx Ql (Throat) Positive [employer] [facility] [employer] Other Quick Strep [facility] [employer] Other Albumin [Mass/volume] in Ser um or PlasmaOrdered By: Cory Lala on 06-04-2022 Albumin [Mass/Vol] 3.8 g/dL 3.2-5.5 [facility] Basic Metabolic Panelon 05-13 Calcium [Mass/Vol] 9.0 mg/dL Normal 8.2-10.2 [facility] Comment on above: Performed By: #### C BC, HEPATIC, BMP, LIPASE #### [facility] [address] Chloride [Moles/Vol] 105 mmol/L Normal 95-114 [facility] Comment on above: Performed By: #### C BC, HEPATIC, BMP, LIPASE #### [facility] [address] [place] [address] CO2 [Moles/Vol] 21.2 mmol/L Low 22.0-30.0 [facility] Comment on above: Performed By: #### C BC, HEPATIC, BMP, LIPASE #### [address] Creatinine [Mass/Vol] 0.66 mg/dL Normal 0.44-1.03 [facility] Comment on above: Performed By: #### C BC, HEPATIC, BMP, LIPASE #### [address] Creatinine Clr Calc Pharmacy 149.57 [facility] Comment on above: Performed By: #### C BC, HEPATIC, BMP, LIPASE #### [address] Estimated GFR ( Nika > 60 [facility] Comment on above: Result Comment: GFR estimated reference range: According to KDOQI guidelines, <60 ml/min/1.73m2 is sufficient to diagnose a patient with chronic kidney disease. Performed By: #### C BC, HEPATIC, BMP, LIPASE #### [facility] [address] Estimated GFR (Non- Am > 60 Normal [facility] Comment on above: Performed By: #### C BC, HEPATIC, BMP, LIPASE #### [facility] [address] Glucose [Mass/Vol] 123 mg/dL High 70-100 [facility] Comment on above: Result Comment: [place] Glucose Reference Range is dependent on time and content of last meal. Glucose of more than 200 mg/dL in a nonstressed, ambulatory subject supports the diagnosis of Diabetes Mellitus. ADA recommended reference range Performed By: #### C BC, HEPATIC, BMP, LIPASE #### [facility] [address] Potassium [Moles/Vol] 3.7 mmol/L Normal 3.5-5.1 [facility] Comment on above: Performed By: #### C BC, HEPATIC, BMP, LIPASE #### [address] Sodium [Moles/Vol] 138 mmol/L Normal 136-146 [facility] Comment on above: Performed By: #### C BC, HEPATIC, BMP, LIPASE #### [address] Urea nitrogen [Mass/Vol] 7 mg/dL Low 9-23 [facility] Comment on above: Performed By: #### C BC, HEPATIC, BMP, LIPASE #### [address] Basophils Auto (Bld) [#/Vol] Ordered By: Cory Lala on 06-04-2022 Basophils (Bld) [#/Vol] 0.0 10*3/uL 0.0-0.2 [facility] Basophils/100 WBC Auto (Bld) Ordered By: Cory Lala on 06-04-2022 Basophils/100 WBC (Bld) 0.3 % . [facility] Blood hemoglobin measurement (mass/volume)Ordered By: Cory Lala on 06-04-2022 Hemoglobin (Bld) [Mass/Vol] 12.6 g/dL 11.8-15.4 [facility] Blood leukocytes automated c ount (number/volume)Ordered By: Cory Lala on 06-04-2022 WBC (Bld) [#/Vol] 7.3 10*3/uL 4.5-11.0 [facility] Complete Blood Count Auto Di ffon 06-04-2022 Basophils (Bld) [#/Vol] 0.0 10*3/uL Normal 0.0-0.2 [facility] Comment on above: Result Comment: PERF ORMED BY: [place] [address] PATHOLOGIST [employer] SCRE[employer] LEORA HIGGINS M.D. Performed By: #### C BC, HEPATIC, BMP, LIPASE #### [facility] [address] [place] [address] Basophils/100 WBC (Bld) 0.3 % Normal . [facility] Comment on above: Performed By: #### C BC, HEPATIC, BMP, LIPASE #### [facility] [address] Eosinophils (Bld) [#/Vol] 0.0 10*3/uL Normal 0.0-0.45 [facility] Comment on above: Performed By: #### C BC, HEPATIC, BMP, LIPASE #### [facility] [address] [place] [address] Eosinophils/100 WBC (Bld) 0.6 % Normal . [facility] Comment on above: Performed By: #### C BC, HEPATIC, BMP, LIPASE #### [facility] [address] [place] [address] Erythrocyte distribution width (RBC) [Ratio] 13.0 % Normal 11.9-15.3 [facility] Comment on above: Performed By: #### C BC, HEPATIC, BMP, LIPASE #### [facility] [address] Hematocrit (Bld) [Volume fraction] 37.6 % Normal 34.0-46.4 [facility] Comment on above: Performed By: #### C BC, HEPATIC, BMP, LIPASE #### [address] Hemoglobin (Bld) [Mass/Vol] 12.6 g/dL Normal 11.8-15.4 [facility] Comment on above: Performed By: #### C BC, HEPATIC, BMP, LIPASE #### [address] Lymphocytes (Bld) [#/Vol] 1.4 10*3/uL Normal 1.00-4.8 [facility] Comment on above: Performed By: #### C BC, HEPATIC, BMP, LIPASE #### [address] Lymphocytes/100 WBC (Bld) 19.6 % Normal . [facility] Comment on above: Performed By: #### C BC, HEPATIC, BMP, LIPASE #### [address] MCH (RBC) [Entitic mass] 29.9 pg Normal 24.7-34.3 [facility] Comment on above: Performed By: #### C BC, HEPATIC, BMP, LIPASE #### [address] MCV (RBC) [Entitic vol] 89.0 fL Normal 80-100 [facility] Comment on above: Performed By: #### C BC, HEPATIC, BMP, LIPASE #### [address] Mean Corpuscular HGB Conc 33.6 g/dL Normal 32.0-35.0 [facility] Comment on above: Performed By: #### C BC, HEPATIC, BMP, LIPASE #### [address] Monocytes (Bld) [#/Vol] 0.4 10*3/uL Normal 0.0-0.8 [facility] Comment on above: Performed By: #### C BC, HEPATIC, BMP, LIPASE #### [address] Monocytes/100 WBC (Bld) 4.9 % Normal . [facility] Comment on above: Performed By: #### C BC, HEPATIC, BMP, LIPASE #### [address] Neutrophils (Bld) [#/Vol] 5.4 10*3/uL Normal 1.8-7.7 [facility] Comment on above: Performed By: #### C BC, HEPATIC, BMP, LIPASE #### [address] Neutrophils/100 WBC (Bld) 74.6 % Normal . [facility] Comment on above: Performed By: #### C BC, HEPATIC, BMP, LIPASE #### [address] Nucleated RBC/100 WBC (Bld) [Ratio] 0.0 % Normal 0-0.5 [facility] Comment on above: Performed By: #### C BC, HEPATIC, BMP, LIPASE #### [address] Platelet mean volume (Bld) [Entitic vol] 9.2 fL Normal 6.3-10.7 [facility] Comment on above: Performed By: #### C BC, HEPATIC, BMP, LIPASE #### [address] Platelets (Bld) [#/Vol] 274 10*3/uL Normal 150-450 [facility] Comment on above: Performed By: #### C BC, HEPATIC, BMP, LIPASE #### [address] RBC (Bld) [#/Vol] 4.23 10*6/uL Normal 3.60-5.00 [facility] Comment on above: Performed By: #### C BC, HEPATIC, BMP, LIPASE #### [address] WBC (Bld) [#/Vol] 7.3 10*3/uL Normal 4.5-11.0 [facility] Comment on above: Performed By: #### C BC, HEPATIC, BMP, LIPASE #### [facility] [address] Creatinine and Glomerular fi ltration rate.predicted panel (S/P/Bld)Ordered By: Cory Lala on 06-04-2022 Creatinine [Mass/Vol] 0.66 mg/dL 0.44-1.03 [facility] Direct bilirubin measurement Ordered By: Cory Lala on 06-04-2022 Bilirubin.direct [Mass/Vol] 0.2 mg/dL 0.0-0.4 [facility] Eosinophils Auto (Bld) [#/Vo l]Ordered By: Cory Lala on 06-04-2022 Eosinophils (Bld) [#/Vol] 0.0 10*3/uL 0.0-0.45 [facility] Eosinophils/100 WBC Auto (Bl d)Ordered By: Cory Lala on 06-04-2022 Eosinophils/100 WBC (Bld) 0.6 % . [facility] Erythrocyte distribution wid th Auto (RBC) [Ratio]Ordered By: Cory Lala on 06-04-2022 Erythrocyte distribution width (RBC) [Ratio] 13.0 % 11.9-15.3 [facility] Estimated glomerular filtrat ion rate (GFR) non- AmericanOrdered By: Cory Lala on 06-04-2022 GFR/1.73 sq M.predicted among non-blacks MDRD (S/P/Bld) [Vol rate/Area] > 60 mL/Min [facility] Globulin Calc (S) [Mass/Vol] Ordered By: Cory Lala on 06-04-2022 Globulin (S) [Mass/Vol] 3.7 g/dL [facility] Hematocrit Auto (Bld) [Volum e fraction]Ordered By: Cory Lala on 06-04-2022 Hematocrit (Bld) [Volume fraction] 37.6 % 34.0-46.4 [facility] Hepatic Panelon 06-04-2022 Albumin [Mass/Vol] 3.8 g/dL Normal 3.2-5.5 [facility] Comment on above: Performed By: #### C BC, HEPATIC, BMP, LIPASE #### [address] Albumin/Globulin [Mass ratio] 1.0 {ratio} Normal [facility] Comment on above: Performed By: #### C BC, HEPATIC, BMP, LIPASE #### [address] ALP [Catalytic activity/Vol] 57 U/L Normal 32-92 [facility] Comment on above: Performed By: #### C BC, HEPATIC, BMP, LIPASE #### [address] ALT [Catalytic activity/Vol] 39 U/L Normal 10-60 [facility] Comment on above: Performed By: #### C BC, HEPATIC, BMP, LIPASE #### [address] AST [Catalytic activity/Vol] 23 U/L Normal 10-42 [facility] Comment on above: Performed By: #### C BC, HEPATIC, BMP, LIPASE #### [address] Bilirubin [Mass/Vol] 0.6 mg/dL Normal 0.3-1.2 [facility] Comment on above: Performed By: #### C BC, HEPATIC, BMP, LIPASE #### [address] Bilirubin,Indirect 0.4 mg/dL Normal [facility] Comment on above: Performed By: #### C BC, HEPATIC, BMP, LIPASE #### [address] Bilirubin.indirect [Mass/Vol] 0.2 mg/dL Normal 0.0-0.4 [facility] Comment on above: Performed By: #### C BC, HEPATIC, BMP, LIPASE #### [address] Globulin (S) [Mass/Vol] 3.7 g/dL Normal [facility] Comment on above: Performed By: #### C BC, HEPATIC, BMP, LIPASE #### [address] Protein [Mass/Vol] 7.5 g/dL Normal 6.1-7.9 [facility] Comment on above: Performed By: #### C BC, HEPATIC, BMP, LIPASE #### [facility] [address] Laboratory - Chemistry and C hemistry - challengeOrdered By: Cory Lala on 06-04-2022 Lipase [Catalytic activity/Vol] 26.0 U/L [facility] Laboratory - Hematology and Cell countsOrdered By: Cory Lala on 06-04-2022 Nucleated RBC/100 WBC (Bld) [Ratio] 0.0 % 0-0.5 [facility] Lipaseon 06-04-2022 Lipase [Catalytic activity/Vol] 26.0 U/L Normal [facility] Comment on above: Result Comment: PERF ORMED BY: [place] [address] PATHOLOGIST [employer]CRE[employer] LEORA HIGGINS M.D. Performed By: #### C BC, HEPATIC, BMP, LIPASE #### [facility] [address] Lymphocytes Auto (Bld) [#/Vo l]Ordered By: Cory Lala on 06-04-2022 Lymphocytes (Bld) [#/Vol] 1.4 10*3/uL 1.00-4.8 [facility] Lymphocytes/100 WBC Auto (Bl d)Ordered By: Cory Lala on 06-04-2022 Lymphocytes/100 WBC (Bld) 19.6 % . [facility] MCH Auto (RBC) [Entitic mass ]Ordered By: Cory Lala on 06-04-2022 MCH (RBC) [Entitic mass] 29.9 pg 24.7-34.3 [facility] MCHC Auto (RBC) [Mass/Vol]Or dered By: Cory Lala on 06-04-2022 MCHC (RBC) [Mass/Vol] 33.6 g/dL 32.0-35.0 [facility] MCV Auto (RBC) [Entitic vol] Ordered By: Cory Lala on 06-04-2022 MCV (RBC) [Entitic vol] 89.0 fL 80-100 [facility] Monocytes Auto (Bld) [#/Vol] Ordered By: Cory Lala on 06-04-2022 Monocytes (Bld) [#/Vol] 0.4 10*3/uL 0.0-0.8 [facility] Monocytes/100 WBC Auto (Bld) Ordered By: Cory Lala on 06-04-2022 Monocytes/100 WBC (Bld) 4.9 % . [facility] Neutrophils Auto (Bld) [#/Vo l]Ordered By: Cory Lala on 06-04-2022 Neutrophils (Bld) [#/Vol] 5.4 10*3/uL 1.8-7.7 [facility] Neutrophils/100 WBC Auto (Bl d)Ordered By: Cory Lala on 06-04-2022 Neutrophils/100 WBC (Bld) 74.6 % . [facility] No Panel InformationOrdered By: Cory Lala on 06-04-2022 Estimated GFR () > 60 mL/Min [facility] Comment on above: GFR estimated refere nce range: According to KDOQI guidelines, <60 ml/min/1.73m2 is sufficient to diagnose a patient with chronic kidney disease. Pharmacy Creatinine Clearance (Chem 149.57 [facility] Platelet mean volume Auto (B ld) [Entitic vol]Ordered By: Cory Lala on 06-04-2022 Platelet mean volume (Bld) [Entitic vol] 9.2 fL 6.3-10.7 [facility] Platelets Auto (Bld) [#/Vol] Ordered By: Cory Lala on 06-04-2022 Platelets (Bld) [#/Vol] 274 10*3/uL 150-450 [facility] Protein [Mass/volume] in Ser um or PlasmaOrdered By: Cory Lala on 06-04-2022 Protein [Mass/Vol] 7.5 g/dL 6.1-7.9 [facility] RBC Auto (Bld) [#/Vol]Ordere d By: Cory Lala on 06-04-2022 RBC (Bld) [#/Vol] 4.23 10*6/uL 3.60-5.00 [facility] Serum or plasma alanine iraheta otransferase measurement without P-5'-P (enzymatic activiOrdered By: Cory Lala on 06-04-2022 ALT No additional P-5'-P [Catalytic activity/Vol] 39 U/L 10-60 [facility] Serum or plasma albumin/glob ulin mass ratioOrdered By: Cory Lala on 06-04-2022 Albumin/Globulin [Mass ratio] 1.0 {ratio} [facility] Serum or plasma alkaline brenda sphatase measurement (enzymatic activity/volume)Ordered By: Cory Lala on 06-04-2022 ALP [Catalytic activity/Vol] 57 U/L 32-92 [facility] Serum or plasma aspartate am inotransferase measurement (enzymatic activity/volume)Ordered By: Cory Lala on 06-04-2022 AST [Catalytic activity/Vol] 23 U/L 10-42 [facility] Serum or plasma calcium mili urement (mass/volume)Ordered By: Cory Lala on 06-04-2022 Calcium [Mass/Vol] 9.0 mg/dL 8.2-10.2 [facility] Serum or plasma chloride ciara surement (moles/volume)Ordered By: Cory Lala on 06-04-2022 Chloride [Moles/Vol] 105 mmol/L 95-114 [facility] Serum or plasma glucose mili urement (mass/volume)Ordered By: Cory Lala on 06-04-2022 Glucose [Mass/Vol] 123 mg/dL 70-100 [facility] Comment on above: ADA recommended refe rence range Random Glucose Reference Range is dependent on time and content of last meal. Glucose of more than 200 mg/dL in a nonstressed, ambulatory subject supports the diagnosis of Diabetes Mellitus. Serum or plasma non-glucuron idated bilirubin measurement (mass/volume)Ordered By: Cory Lala on 06-04-2022 Bilirubin.indirect [Mass/Vol] 0.4 mg/dL [facility] Serum or plasma potassium me asurement (moles/volume)Ordered By: Cory Lala on 06-04-2022 Potassium [Moles/Vol] 3.7 mmol/L 3.5-5.1 [facility] Serum or plasma sodium measu rement (moles/volume)Ordered By: Cory Lala on 06-04-2022 Sodium [Moles/Vol] 138 mmol/L 136-146 [facility] Serum or plasma total biliru bin measurement (mass/volume)Ordered By: Cory Lala on 06-04-2022 Bilirubin [Mass/Vol] 0.6 mg/dL 0.3-1.2 [facility] Serum or plasma total carbon dioxide measurement (moles/volume)Ordered By: Cory Lala on 06-04-2022 CO2 [Moles/Vol] 21.2 mmol/L 22.0-30.0 [facility] Serum or plasma urea nitroge n measurement (mass/volume)Ordered By: Cory Lala on 06-04-2022 Urea nitrogen [Mass/Vol] 7 mg/dL 9- [facility] US gall bladderon 06-04-2022 US gall bladder [facility] [place] [address] Ultrasound Report Signed Patient: Marce Juarez MR#: [id number] 722 : 2005 Acct:[id number] Age/Sex: 17 / F ADM Date: 06/04/22 Loc: ER Room: Type: [facility] ER Attending Dr: Ordering Provider: Cory Lala DO Date of Service: 06/04/22 US/US gall bladder: ABDOMINAL PAIN Copies to: Cory Lala DO LIMITED ABDOMINAL ULTRASOUND: CLINICAL HISTORY: Abdominal pain after having dairy For 2 months. COMPARISON: None TECHNIQUE: Grayscale and color Doppler images of the right upper quadrant organs were obtained. FINDINGS: Pancreas: Visualized portions appear unremarkable. Liver: Unremarkable. Hepatopedal flow is seen within the portal vein. Gallbladder: Unremarkable. CBD: 3 mm US/US gall bladder IMPRESSION: NO ACUTE PROCESS. . Impression dictated by: Joseph Angela Jr., D.O.06/04/2022 8:52 AM Dictation Location: [place] [address] Tech: Rachelle Gomez Transcribed By: GREG 06/04/22 0852 Dictated By: Joseph Angela Jr, DO 06/04/22 0849 Signed By: 06/04/22 0852 Normal [facility] COVID-19 FRon 10-13-2021 SARS-CoV-2 (COVID-19) RNA GIULIANA+probe Ql (Unsp spec) Negative Normal Negative [facility] Comment on above: Order Comment: Healt hcare Worker?: N Result Comment: Testing for SARS-CoV-2 by RT-PCR This test was developed and its performance characteristics determined by [employer]) and validated at the [facility]. This test has not been FDA cleared or approved. This test has been authorized by FDA under an Emergency Use Authorization (EUA). This test has been validated in accordance with the FDA's Guidance Document (Policy for Diagnostics Testing in Laboratories Certified to Perform High Complexity Testing under CLIA prior to Emergency Use Authorization for Coronavirus Disease-2019 during the Public Health Emergency) issued on January 12, 2020. This test is only authorized for the duration of time the declaration that circumstances exist justifying the authorization of the emergency use of in vitro diagnostic tests for detection of SARS-CoV-2 virus and/or diagnosis of COVID-19 infection under section 564(b)(1) of the Act, 21 U.S.C. 360bbb-3(b)(1), unless the authorization is terminated or revoked sooner. PERFORMED BY: [place] [address] PATHOLOGIST [employer] GR[employer] SCREENER LEORA HIGGINS M.D. Performed By: #### C OVID 19 [facility] #### [address] Coding Summaryon 07-29-2021 Coding Summary HTMLBase 64 XerbfmuiCYr5lCz+PGhl YWQ+QP0UNTYqV19xnOWg kT9FQ1lBMM4FKGPVWWCT GI7JPK6xwAJ4ARudZ3Uj biAv EfzbrNVzLH83HEk0RXX4 fMxkUGgipS6aaDLtC3s7 GuZqPM13cD57THucEPYa LoL8OpMxagvctUMb N7lzXwEepTLiIoc+PHRh YmxlIHdpZHRoPScxMDAl DsImwAnpDX9oBm3yCRHv LWNvbGxhcHNlOiBj z0qrCFIoOAqbAN1pvZmw L0GqeQN3BIBtt9x0Pu11 dHI+NQZcPJX9mBbbAPbm a646UdEvv5ouEIL1 qAIpHFgoGEA8N24ou7Z8 DEMrVTXoPTG3bNW3mX7m gSdftspuN5AmaJVuHqF6 GXT4hRLkbL1jyMqp uvbytE8mGny+H04YEA1U VMUCXN3VKpd3V3ZuTudi dHI+RB54EHTrUZ43iRCu fKHjy1svhCk2PeLx UUIpATG9cTokBLeth6Eq ELVsO06zxSMwp9W4QIUa nRsbxDFdMwZdnGN0fW8z MJyehgsfq0kybuxv Pffvw1mswj89rP65Y98u FBpyLDAhIUX7YCXmVRHr aCsoue2bsC4iEh5+IDxj r9las7lrcXw6FpUi VQAahoRfeBwtRQO7a1Ld Bg92Y6DikDqiv3TjQxy8 db84lZUae6T0fXN5QQcf IGBpuH5zXWyrLeM8 VTZoXyVnfY10iVGfRCpd Xn6wyGbjkEwqIY9dCUKx ebplMJKknN3dZJXfcLRt qAmwQJ1mFVCbdzmt z352WeEeRCK8IHYljXOc I5JfdN5hDzRgCDMkCQNr E0GffXBxLEdmX704QQkg EiH2KDFqutDvX4Od GGNlhBqlHrQ7r1L1Wc5I z1UpjyzlWCQ1KQusXLBn CsS6YdEtIxE8U7QyJlf7 PEWytGpaSE9fF1Ge LRAxykklfoiggNP4NIUx SNLouO45zBPzUFdoRa8x w7B2x231SCTtWONxlJ66 Qh8qqHhvGSNveHTJ bO1btodxh6eqcsxdWbPk EJMwJGo3NMa5KOBjiXoa NnRfSJV0KiL1SBN0uEOi dJ4atByyaeotfP8a Oyc+H17lfB0rYDV6GVK9 mqpzMPTaunXyXI76UT98 N8CdOioozJKznGN+PGRp ioNwxUozYG1yLkZg h0dak4UxTAjfX5RsMYZz MJxiNah0BHOoQRS9qCK0 kE8kBQZeTOzgh1B2zGR5 C0SynuMjfq1wg7ds DHNfYVwlA74zqNSdt2R7 DCAzrEW4OSBefMibNqNj jW79Yiu+FWJfjBsno6By Xwfgr1ppz0dklCj1 IjMwJSIgdmFsaWduPSJ0 w5LeGi25D16fKKnlKRFu YBGrUIAvABSrbNiodx3n oX5wJp4+PGNvbCB3 iOU5vW2zZTVwZiR1DLpn Y365ClFzcUKxWcdpk6wr v3quzKr9MzDuYESfpgYk rXyuCCI2a6QnZw22 F10sPNzfCGMhOOLqJFOa DHTxtEfuhn5tpN2yFs3+ LQ3my0qswy76vU21lOT+ ZXYvUFV9aTvpNAdq ACEdeT6pQJokDfJ5DITr TmEtbX13vGSuOVkzDe4z fHhunYbgUH6vEXFtgdcl x778CnYna7epCSDs uRXpCRzoFJB5T66vi2U4 WLPmTQOrJMC7vUL3nV3v bGlnbjogbGVmdDsgdmVy gLbhKKgxGKbuM279 IHRvcDsnPlBhdGllbnQg RzJaKEf9X0SeDgp7YBWc eUbdFV0djKMaWCmuXf7z jBbtcBtzIZ0vVEQq ybmcx943QcVjg0neQPIn kVFvDOieCZP6G87ui1K8 CXHkFPXhTJJ0tKQ2iG4r bGlnbjogbGVmdDsg yeWyiPtuZBkwSFkbY475 IHRvcDsnPkJpcnRoIERh pLF8UJ96VQ11rGCoq4H6 tZF5F2GqNWKvryvv ggsjlTY0RPUbHHCacU84 Oh4cbEufYg3sQKLzOTW3 BAZqmGUnK7LraR6bWpCz AGAeWQQhZ1AmdJRi TKszJ103CVtxGbW0QUVh mpGfS5JmYLFcaQebLyE6 n4C4Bo7SW0U3JB13HH95 dBSuz3N5dDE7L4Ia DIXqfbenwrysfKU5IHWt QTKwtN11Qf2tfIefVg3j UGJaMTG8AELmyPBeJ5Ct pN3pHbGzNMOqOPKl X2ZoaMVhYLmsO217YTmn NaC5AXTngjDlF2NcWNOu kIzyTnY6e2N0Ts6CWDx9 RT16LT76eHXhy1M3 kND8O3GzPLPmddkqxtzu tSJ6TUOxRZTqnG38Bx4f lHlrUk4xUVTeCOV4UNMt oDIuR7ZnoE0gLtCq BIFmQFZlP8YhpXCfNMpo L851FLjbKkB0TQGmypHq O1UfTAQylOstZcU3q3I8 Ks9PSFUmRO24BNG6 eCW7UL61BI08E8BfVvqm dGFibGU+PHRhYmxlIHdp ZHRoPScxMDAlJyBzdHls TE6jXt3qGEPeSGXq vUrqkYCmIsCoj8tyDWKf RXjmSU2zzWmiZ3KezDQ2 GDXaw1b0Ay70R77nO7Bv dXA+VAIkvRI0aCH0 iV0lKfSbQqY7WGhnW108 BoZgkEIgXnmed1see9wo dMz0RiM8DBVkbhQjiFcm GYH1n5PaTq74L84x IHdpZHRoPSIxNSUiIHZh zCegff2fuR5aMb8+PGNv xBC0aTY3bZ7uAuVzVxS2 IGtgJ290UtEdnVRi Ylkho1giz0aivSs3FpJa TPHxibWzjMqtAER0u6Ye Wv41Z8DsaOazb1MrWwl9 tm01uAFhx7Q4vGC1 J5HhKVUlytiepLJklBox QC8gBLCangbfTBHhzF1g RUHlA6v6KsKsRcO6ZJur E3CkhkP3YNLewZGj OKalVFK3G89ba6M2KXAv PVTiGGG7dNC6dT3mmZim bjogbGVmdDsgdmVydGlj IBsxYTgvN175OMVo yXedSBRueW0wILJjjQOn dLfyZJ0wUXLlwghaChXX L5nYDYLHFvrRFY6PQJSC SVpBQkVUSDwvdGQ+ WKKhNZC5bRpoOOmsCAMd fM1kIKWoS4a6GxHtDoF2 YDqkB3HiBYMarauqHh26 tD6wIyBhClK0VRqu N6BsjsT5BHCutRUeNXzv NIA7P64kw3A6OYCxVIGh JYE8cPF4cF5nwKsymgnj bGVmdDsgdmVydGlj JHmjWMhzU506BMJvfGdf HdK0XlI4WkMgZAE4O6Kh Zpl9SKXfeYzsEY8cbEJy ZReyMl4rsDvolSpa AF7vNSSmnotuILKctG8f CINonVQsxUhmCV4hPBUa cosua916OiGsRAC0QLKs xSNdZ0PlgX0lJtBn LCWkMINyR1LgrJNcJWsf H785LFjcXzN2YDJgroDc E2TwXJBqsRyoThH8k2N5 Oj8kQDWYJBClyyau dGQ+COFxGNI8qSxbUHfn WAOmkF5aWWCxU9l2NgUh HfX3HTlaC2TkIUUrtkdu Zg17cW2ePhAvYdU5 AOaoE3ZsmhQ4UHGieLBg HSmoWES2C03tp6F7QNQn JRKgFLZ7fDU7wQ8asChf bjogbGVmdDsgdmVy kAxgKNckRAxsV683CGPp cDsnPkZFTUFMRTwvdGQ+ BRXtLIE3wDgaNXdzVKUo hN1mNESuF8t7GeCi FlQ1HAwmH1CdWHQorcqz Ca68tG2vYvDqEeX2HRkj U0HszaK0QXSuaFJuZFyu BRD5L40vf0P2GYJm WVZsQFV7zWK7lH8scVqb bjogbGVmdDsgdmVydGlj LQxfTFftM490BXUrmJzb Xz5KSF55WQ63B1Gp PjwvdGFibGU+PHRhYmxl IHdpZHRoPScxMDAlJyBz vSnpGP3wOx3mWVHlBCBz eXxhuEVmZtVpt1qx JASwWXdlBI8zrStvM5Hx eNT7PRUgx9s2Ly09B98o A6WwmSF+VCAccMG7jMV6 qY1rPpYrPiC6PRwc K585LjOfsUNnKquyp8hb r6gzkVp5BjTaXKDbiaTs uMzsXBA0g5DdHd09Z94h IHdpZHRoPSIyMCUi RXLepNixqp4laK8zEe9+ QRVtoDL2gTF3iN6lBaWi MgU8UUiuM632AxUiuBTs BrhlO69eW6ExzWB+ AFGjDxs5CXEtmQcwEK8n uFKsCUvhYx4jMNF7IgTu CkAqZLmhX6FtKZEfcwzv tzitsHT4KRCfZCAd bV22Vx0ssTbnBs7iTXIj SNH8SQDkeQYoD4SmyC0v BqAhHYQvZWYvW8WifXBm UGsfU701WFkbSpN2 ONNjnnBmC0OaBLCppVse ZcF8n6W1Cq8NpXfmtTTh HL5bTqKvOEo2X3MdQxy3 GQHzlSsaPS1amDLr LKcaLv8zbQawsFdmSJ3j RBRtyflkn726ZwFov3wo DNKfrVXhHOonWUD2C46a c9R7KGUhEHRwWRP3 qSM7nG2fnFbnmzmquAFc dDsgdmVydGljYWwtYWxp H808ONUuoQzmZbSJUxb6 A7ZqHax4CJKigIhs YS2ybBIyDTbcJb1qkVnm yEbjND8kXUAyaqmrw641 DmOnd1jjIXHceVWpDIfl MNO8U83yq6K2MZUg GGElZKE9zXM5oX8kcKke bjogbGVmdDsgdmVydGlj GOiuVGbrO958HKIbcWmm Uj2MAnq4A0CbJty5 YQJewMmkNC9rbCKsXImy Cp4vfOjlzSkmQI2zPAKc xkucd635XqAfz3eqYDKq cEPfDMfxERD5E04m y9A3XDRqZDBtPOR3jQO1 aR0yaNrggjbzyHUhyYjj jkYbnSiiSTubHIxpF572 IHRvcDsnPlBheWVy OjwvdGQ+QI38do17F7Gf OytpSwf5YPSzUSS6pXH8 eE7mNSNdMWbnr7Y5oUM4 V5JaksEkjm7ar0ua YXB (more content not included)... [facility] Provider Orderson 07-26-2021 Provider Orders [id number] Normal [facility] .Auto Diff 1on 07-25-2021 Auto [place] % 7 % Normal 1-12 [facility] Comment on above: Performed By: #### 7 [id number] #### [facility] (DEFAULT) [address] [place] [address] Baso Abs# 0.0 x10 Normal 0.0-0.2 [facility] Comment on above: Performed By: #### 7 [id number], [id number] #### [facility] (DEFAULT) [address] [place] [address] Basophils/100 WBC (Bld) 0.2 % Normal 0.2-2.0 [facility] Comment on above: Performed By: #### 7 [id number], [id number] #### [facility] (DEFAULT) [address] [place] [address] Eos Abs# 0.1 x10 Normal 0.0-0.4 [facility] Comment on above: Performed By: #### 7 [id number], [id number], [id number] #### [facility] (DEFAULT) [address] [place] [address] Eosinophils/100 WBC (Bld) 1.2 % Normal 0.9-4.0 [facility] Comment on above: Performed By: #### 7 [id number], [id number], [id number] #### [facility] (DEFAULT) [address] [place] [address] Lymph Abs# 1.9 x10 Normal 1.3-2.9 [facility] Comment on above: Performed By: #### 7 [id number], [id number], [id number] #### [facility] (DEFAULT) [address] [place] [address] Lymphocytes/100 WBC (Bld) 24 % Normal 14-48 [facility] Comment on above: Performed By: #### 7 [id number], [id number], [id number], [id number] #### [facility] (DEFAULT) [address] [place] [address] [place] Abs# 0.6 x10 Normal 0.0-0.8 [facility] Comment on above: Performed By: #### 7 [id number], [id number], [id number], [id number] #### [facility] (DEFAULT) [address] [place] [address] Neut Abs# 5.6 x10 Normal 1.5-9.2 [facility] Comment on above: Performed By: #### 7 [id number], [id number], [id number] #### [facility] (DEFAULT) [address] [place] [address] Neutrophils/100 WBC (Bld) 68 % Normal 44-88 [facility] Comment on above: Performed By: #### 7 [id number], [id number], [id number], [id number] #### [facility] (DEFAULT) [address] [place] [address] CBC w/ Auto Diffon Erythrocyte distribution width (RBC) [Ratio] 12.5 % Normal 11.5-15.0 [facility] Comment on above: Performed By: #### 7 [id number], [id number], [id number], [id number] #### [facility] (DEFAULT) [address] [place] [address] Hematocrit (Bld) [Volume fraction] 39.1 % Normal 33.7-40.4 [facility] Comment on above: Performed By: #### 7 [id number], [id number], [id number], [id number] #### [facility] (DEFAULT) [address] [place] [address] Hemoglobin (Bld) [Mass/Vol] 12.7 g/dL Normal 11.3-15.9 [facility] Comment on above: Performed By: #### 7 [id number], [id number], [id number], [id number] #### [facility] (DEFAULT) [address] [place] [address] Instr WBC 8.2 x10 Invalid Interpretation Code [facility] Comment on above: Performed By: #### 7 [id number], [id number], [id number], [id number] #### [facility] (DEFAULT) [address] [place] [address] 39437 Man Diff? Auto Normal [facility] Comment on above: Performed By: #### 7 [id number], [id number], [id number], [id number] #### [facility] (DEFAULT) [address] [place] [address] 63209 MCH (RBC) [Entitic mass] 29 pg Normal 24-34 [facility] Comment on above: Performed By: #### 7 [id number], [id number], [id number], [id number] #### [facility] (DEFAULT) [address] [place] [address] 59805 MCHC (RBC) [Mass/Vol] 32 g/dL Normal 26-37 [facility] Comment on above: Performed By: #### 7 [id number], [id number], [id number], [id number] #### [facility] (DEFAULT) [address] [place] [address] MCV (RBC) [Entitic vol] 90 fL Normal 81-100 [facility] Comment on above: Performed By: #### 7 [id number], [id number], [id number], [id number] #### [facility] (DEFAULT) [address] [place] [address] Platelet 276 x10 Normal 138-427 [facility] Comment on above: Performed By: #### 7 [id number], [id number], [id number], [id number] #### [facility] (DEFAULT) [address] [place] [address] 31356 Platelet mean volume (Bld) [Entitic vol] 10.6 fL High 6.3-10.2 [facility] Comment on above: Performed By: #### 7 [id number], [id number], [id number], [id number] #### [facility] (DEFAULT) [address] [place] [address] RBC 4.33 x10 Normal 3.70-5.30 [facility] Comment on above: Performed By: #### 7 [id number], [id number], [id number], [id number] #### [facility] (DEFAULT) [address] [place] [address] WBC 8.2 x10 Normal 3.5-10.5 [facility] Comment on above: Performed By: #### 7 [id number], [id number], [id number], [id number] #### [facility] (DEFAULT) [address] [place] [address] 58826 Glucoseon 07-25-2021 Glucose [Mass/Vol] 103.0 mg/dL Normal 56.0-144.0 [facility] Comment on above: Performed By: #### 7 [id number], [id number], [id number], [id number] #### [facility] (DEFAULT) [address] [place] [address] 62539 TSHon 07-25-2021 TSH Qn 1.35 m[IU]/L Normal 0.45-5.33 [facility] Comment on above: Result Comment: Gene ral Population (males and non- females, aged 21-88) 0.45 - 5.33 Females, 1st Trimester 0.05 - 3.70 Females, 2nd Trimester 0.31 - 4.35 Females, 3rd Trimester 0.41 - 5.18 Performed By: #### 7 [id number], [id number], [id number], [id number] #### [facility] (DEFAULT) [address] [place] [address] 17896 Vital Signs Date Time Vital Sign Value Performing Clinician Facility 10-21-2022 15:45-0500 Body height Michael Wilson Other [employer] Other 10-21-2022 15:45-0500 Body mass index (BMI) [Ratio] 34.33 kg/m2 Michael Wilson Other [employer] Other 10-21-2022 15:45-0500 Body temperature 98.6 [degF] Michael Wilson Other [employer] Other 10-21-2022 15:45-0500 Body weight 90.72 kg Michael Wilson Other [employer] Other 10-21-2022 15:45-0500 Diastolic blood pressure 90 mm[Hg] Michael Wilson Other [employer] Other 10-21-2022 15:45-0500 Respiratory rate 20 /min Michael Wilson Other [employer] Other 10-21-2022 15:45-0500 SaO2% (BldA) [Mass fraction] 98 % Michael Wilson Other [employer] Other 10-21-2022 15:45-0500 Systolic blood pressure 135 mm[Hg] Michael Wilson Other [employer] Other 10-04-2022 10:27-0500 Body temperature 98.3 [degF] [facility] Lela Bullimore Work Phone: [facility] 10-04-2022 10:27-0500 Diastolic blood pressure 97 mm[Hg] [facility] [facility] Lela Bullimore Work Phone: [facility] 10-04-2022 10:27-0500 Heart rate 93 /min [facility] [facility] Lela Bullimore Work Phone: [facility] 10-04-2022 10:27-0500 Respiratory rate 20 /min [facility] Lela Bullimore Work Phone: [facility] 10-04-2022 10:27-0500 SaO2% (BldA) [Mass fraction] 100 % [facility] [facility] Lela Bullimore Work Phone: [facility] 10-04-2022 10:27-0500 Systolic blood pressure 137 mm[Hg] [facility] [employer] [facility] Lela Bullimore Work Phone: [facility] 06-04-2022 09:10-0400 Diastolic blood pressure 75 mm[Hg] [facility] 06-04-2022 09:10-0400 Heart rate 88 /min [facility] 06-04-2022 09:10-0400 Respiratory rate 16 /min [facility] 06-04-2022 09:10-0400 SaO2% (BldA) [Mass fraction] 96 % [facility] 06-04-2022 09:10-0400 Systolic blood pressure 143 mm[Hg] [facility] 06-04-2022 07:42-0400 Body height 162.56 cm [facility] 06-04-2022 07:42-0400 Body temperature 97.9 [degF] [facility] 06-04-2022 07:42-0400 Body weight 90.71 kg [facility] Encounters Encounter Date Encounter Type Care Provider Facility Start: 10-31-2023 End: 10-31-2023 ambulatory TORSTEN GOVEA Not Available Start: 10-20-2023 End: 10-20-2023 ambulatory ERAN CASTELLANOS Not Available Start: 09-15-2023 End: 09-15-2023 ambulatory ERAN CASTELLANOS Not Available Start: 09-02-2023 End: 09-02-2023 ambulatory ERAN JASMIN Not Available Start: 08-26-2023 End: 08-26-2023 ambulatory ERAN CASTELLANOS Not Available Start: 03-10-2023 End: 03-11-[address] GAVIN WINTERS . Facility: Start: 2023 End: 02-07-[address] GAVIN WINTERS . Facility: Start: 02-05-2023 End: [address] GAVIN WINTERS . Facility: Start: 10-21-2022 End: 10-21-2022 ambulatory Michael Wilson Other [employer] Other Start: 10-21-2022 Office outpatient ne w 20 minutes Michael Wilson [facility] Start: 10-04-2022 End: 10-04-2022 Emergency department patient visit Lela Zavala Facility:[facility] Start: 10-04-2022 End: 10-04-2022 Emergency department patient visit [facility] [facility] Lela Zavala Work Phone: [facility] Work Phone: Start: 06-04-2022 End: 06-04-2022 Emergency department patient visit NON STAFF Facility:[facility] Start: 06-04-2022 End: 06-04-2022 Emergency department patient visit [facility] Start: 10-13-2021 End: 10-13-2021 ambulatory Jayson Perea Facility:[facility] Procedures Date Procedure Procedure Detail Performing Clinician Start: 06-04-2022 US scan of gallbladder Plan of Treatment Date Care Activity Detail Author Patient Education [facility] Work Phone: Patient referral [facility] Work Phone: Payers Date Payer Category Payer Self-pay [id number] 2005 Unknown [id number] 2.16.84 [id number] 2003 Unknown [id number] 2.16.84 [id number] 2003 Unknown [id number] 2.16.84 [id number] 2003 Unknown [id number] 2.16.84 [id number] 2003 Unknown [id number] 2.16.84 [id number] 2003 Unknown [id number] 2.16.840 .[id number] 2003 Unknown [id number] 2.16.840 .[id number] 2003 Unknown [id number] 2.16.840. [id number] 1959 Unknown [id number] Unknown [id number] 2.16.8 [id number] Unknown [id number] 2.16.8 [id number] Unknown [id number] 2.16.8 [id number] Social History Date Type Detail Facility Start: 06-04-2022 Tobacco smoking status GAIS Ex-smoker (finding) [facility] Start: 2005 Sex Assigned At Female F [facility] Start: 10-04-2022 Tobacco smoking status [facility] Never smoked tobacco (finding) [facility] Sex Assigned At Sex Assigned At Bir th [facility] [employer] Other Evaluation note 10-21-2022 Note Date & Type Note Facility 10-21-2022 Evaluation note Encounter Date Diagnosis Assessment Notes Oct, Sore throat (ICD-10 - J02.9) strep pos, see above. Oct, Strep throat (ICD-10 - J02.0) Pt is to take abx as prescribed. take with food. Informed pt they are contagious for first 24 hrs on medication. Push fluids and rest. Pt received work note today. Pt is to take otc antipyretic prn for fever and aches. Change toothbrush after 2-3 days. Pt is to be re-evaluated after treatment if sx worsen or don't improve by pcp. Pt is to call the office with any questions or concerns regarding dx and tx. Pt understood and agreed to treatment plan. [employer] Other Evaluation note Note Date & Type Note Facility Evaluation note No assessment information availa ble [facility] Work Phone: Hospital Discharge instructions Note Date & Type Note Facility Hospital Discharge instructions Additional Instructions Take the amoxicillin twice a day for 10 days take until completed Ibuprofen every 6 hours for pain Do not insert anything into your ear Follow-up with your family doctor for recheck Return to the ER see family doctor worsening pain drainage loss of hearing or any other concerns [facility] Work Phone: Summary Purpose Family History No Family History Records FoundNo Family History Records FoundNo Family History Records FoundNo Family History Records Found Advance Directives No Advanced Directives Records Found Advance Directive Response Recorded Date/ Time Advance Directives No October 13, 2021 8:54am Advance Directive Response Recorded Date/ Time Advance Directives No October 13, 2021 7:54am Chief Complaint and Reason for Visit Chief Complaint abd pain Chief Complaint L ear pain Additional Source Comments INFORMATION SOURCE (unrecogn ized section and content) DATE CREATED AUTHOR 07/29/2021 [facility] DATE CREATED AUTHOR AUTHOR'S ORGANIZ ATION 10/05/2022 [facility] DATE CREATED AUTHOR AUTHOR'S ORGANIZ ATION 03/20/[address] [facility] DATE CREATED AUTHOR AUTHOR'S ORGANIZ ATION 11/01/2023 [facility] [employer] Care Teams (unrecognized sec tion and content) Team Status: Inactive Member Role Status Dates NON STAFF Primary Care Provider Active Cory Lala DO Emergency Provider Active Team Status: Active Member Role Status Dates NON STAFF Primary Care Provider Active Team Status: Inactive Member Role Status Dates Lela Zavala [facility] Emergency Provider Active Karen Smith MD Primary Care Provider Active Team Status: Active Member Role Status Dates Karen Smith MD Primary Care Provider Active Goals (unrecognized section and content) Goals may be documented in a n alternate sectionGoals may be documented in an alternate sectionNo Information REASON FOR VISIT (unrecogniz ed section and content) SWOLLEN TONSILS, NAUSEA FOR RECORDS PERTAINING TO PATIENTS WHO ARE OR HAVE BEEN ENROLLED IN A CHEMICAL DEPENDENCY/SUBSTANCEABUSE PROGRAM, SOME INFORMATION MAY BE OMITTED. This clinical summary was aggregated from multiple sources. Caution should be exercised in using it in the provision of clinical care. This summary normalizes information from multiple sources, and as a consequence, information in this document may materially change the coding, format and clinical context of patient data. In addition, data may be omitted in some cases. CLINICAL DECISIONS SHOULD BE BASED ON THE PRIMARY CLINICAL RECORDS. [employer] provides no warranty or guarantee of the accuracy or completeness of information in this document.
--- NOTE | 2023-11-16 19:37 | ECG_ITS ---
The [facility] Test Date: 2023-11-16 Pat Name: FELIX ASKEW Department: Room: - Gender: Female [employer]: : 2005 Requested By: [id number] Order Number: [id number] Reading MD: MATTHEW WATTS Measurements Intervals [place] Rate: 77 P: 66 [place]: 154 QRS: 74 QRSD: 86 T: 51 QT: 378 QTc: 410 Interpretive Statements 1100 Sinus rhythm 9110 normal ECG No previous ECG available for comparison Electronically Signed On 11-17-2023 6:58:12 EST by MATTHEW WATTS
--- NOTE | 2023-11-16 19:39 | ED_ITS ---
HPI - SOB/Dyspnea General Chief Complaint: Shortness of Breath/Dyspnea Stated Complaint: HARD TO CATCH BREATH, CHEST PRESSURE Time Seen by Provider: 11/16/23 19:23 Source: patient Mode of arrival: walk-in History of Present Illness HPI Narrative: Patient is a 18-year-old female who presents to the emergency department for the evaluation of feeling short of breath and having intermittent chest pain. She states 2 weeks ago she was diagnosed with bronchitis at urgent care for congestion. She has had no persistent fevers, cough. She denies sputum production or hemoptysis. She states she was prescribed a 3-day course of prednisone but did not take it all because it made her nauseous. She admits to having anxiety and feels as though anxiety may be contributing to her symptoms. She is not concerned for . She did not take any medications prior to arrival today. She is notably anxious at initial evaluation. She takes control daily. Related Data Home Medications Medication Instructions Recorded Confirmed norethindrone 1 mg-ethinyl 1 tab PO DAILY 11/16/23 11/16/23 estradiol 20 mcg (21)-iron 75 mg (7) tablet (Chandler Fe 10/31 (28)) Previous Rx's Medication Instructions Recorded hydroxyzine pamoate 25 mg capsule 25 mg PO Q6H PRN anxiety #20 caps 11/16/23 (Vistaril) ketorolac 10 mg tablet 10 mg PO TID PRN pain #10 tabs 11/16/23 Allergies Allergy/AdvReac Type Severity Reaction Status Date / Time No Known Drug Allergies Allergy Verified 11/16/23 19:09 Review of Systems ROS Constitutional Denies: fever or chills Ears, nose, mouth, and throat Denies: throat pain or nasal congestion Cardiovascular Reports: chest pain Respiratory Reports: shortness of breath; Denies: cough Gastrointestinal Denies: nausea, vomiting or diarrhea Genitourinary Denies: painful urination Musculoskeletal Denies: back pain Integumentary/Breast Denies: rash Neurological Denies: headache Hematologic/Lymphatic Denies: easy bruising or easy bleeding [facility] Medical History (Updated 11/16/23 @ 20:36 by NNEKA Miles) IBS (irritable bowel syndrome) ?K58.9 - Irritable bowel syndrome without diarrhea (ICD-10) 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) Social History Smoking status: Former smoker Exam Narrative Exam Narrative: Gen.: Awake, alert, in no distress Head: Normocephalic, atraumatic ENT: Moist mucous membranes Respiratory: No respiratory distress, lungs clear bilaterally Cardio: Regular rate and rhythm Extremities: Moves extremities equally, no Pedal edema Psych: Normal mood and affect Neuro: No focal neuro deficit Skin: Warm, dry, intact Constitutional Vital Signs, click to edit/add: Last Vital Signs Temp 98.1 F 11/16/23 19:05 Pulse 80 11/16/23 20:47 Resp 18 11/16/23 20:47 BP 150/89 H 11/16/23 20:47 Pulse Ox 98 11/16/23 20:47 O2 Del Method Room Air 11/16/23 20:47 Course Vital Signs Vital signs: Vital Signs Temperature 98.1 F 11/16/23 19:05 Pulse Rate 92 H 11/16/23 19:05 Respiratory Rate 18 11/16/23 19:05 Blood Pressure 165/85 H 11/16/23 19:05 Pulse Oximetry 99 11/16/23 19:05 Oxygen Delivery Method Room Air 11/16/23 19:05 Temperature 98.1 F 11/16/23 19:05 Pulse Rate 80 11/16/23 20:47 Respiratory Rate 18 11/16/23 20:47 Blood Pressure 150/89 H 11/16/23 20:47 Pulse Oximetry 98 11/16/23 20:47 Oxygen Delivery Method Room Air 11/16/23 20:47 MDM - SOB/Dyspnea MDM Narrative Medical decision making narrative: Patient with elevated blood pressure although noted to be anxious. She was given Solu-Medrol and Toradol for chest pain and was given Ativan for anxiety. Her lab studies including troponin and D-dimer are within normal limits. EKG is unremarkable and chest x-ray shows no evidence of acute cardiopulmonary changes. Patient will be discharged home to follow-up with PCP, return to the ER if symptoms change or worsen. Medical Records Attestation: I reviewed the patient's medical records. Lab Data Attestation: I reviewed the patient's lab results. Labs: Lab Results 11/16/23 Range/Units 19:10 WBC 10.6 (4.0-11.0) 10^3/uL RBC 4.32 (4.20-5.40) 10^6/uL Hgb 11.0 L (12.0-16.0) g/dL Hct 35.9 L (36.0-48.0) % MCV 83.1 (81.0-99.0) fL MCH 25.5 L (26.7-34.0) pg MCHC 30.6 (29.9-35.2) g/dL RDW 14.0 (11.0-15.0) % Plt Count 268 (150-450) 10^3/uL MPV 12.0 (9.5-13.5) fL Neut % (Auto) 48.3 (43.0-75.0) % Lymph % (Auto) 41.0 (20.5-60.0) % [place] % (Auto) 8.4 (1.7-12.0) % Eos % (Auto) 1.7 (0.9-7.0) % Baso % (Auto) 0.4 (0.2-2.0) % Neut # (Auto) 5.1 (1.4-6.5) 10^3/uL Lymph # (Auto) 4.4 H (1.2-3.8) 10^3/uL [place] # (Auto) 0.9 H (0.3-0.8) 10^3/uL Eos # (Auto) 0.2 (0.0-0.7) 10^3/uL Baso # (Auto) 0.0 (0.0-0.1) 10^3/uL Abs Immat Gran (auto) 0.02 (0.00-0.03) 10^3/uL Imm/Tot Granulo (auto) 0.2 (0.0-0.5) % PT 10.0 (9.0-11.6) sec INR 0.94 D-Dimer 0.44 (<=0.59) mg/L FEU Sodium 140 (136-145) mmol/L Potassium 3.5 (3.5-5.1) mmol/L Chloride 106 (98-107) mmol/L Carbon Dioxide 21.4 (21.0-32.0) mmol/L Anion Gap 16.1 BUN 13.0 (7.0-18.0) mg/dL Creatinine 0.72 (0.55-1.02) mg/dL Est GFR ( Amer) >60 (>=60) Est GFR (Non-Af Amer) >60 (>=60) BUN/Creatinine Ratio 18.1 Glucose 98 (74-106) mg/dL Calcium 8.8 (8.5-10.1) mg/dL Total Bilirubin 0.2 (0.2-1.0) mg/dL AST 26 (15-37) U/L ALT 52 (14-59) U/L Alkaline Phosphatase 93 (46-116) U/L Troponin I High Sens 4.3 (4.0-51.3) pg/mL Total Protein 8.5 H (6.4-8.2) g/dL Albumin 3.6 (3.4-5.0) g/dL Globulin 4.9 g/dL Albumin/Globulin Ratio 0.7 Serum HCG, Qual Negative (NEGATIVE) Imaging Data Chest x-ray: Radiologist's impression: ITS Impressions Chest X-Ray 11/16/23 19:57 IMPRESSION: No acute infiltrate or evidence of cardiac decompensation. Direct comparison with a previous study may be helpful in determining the chronicity of these findings. Electronically authenticated by: YAHIR CARRILLO Date: 11/16/2023 20:27 ECG Data Attestation: I personally reviewed and interpreted this ECG as follows: (Normal sinus rhythm at a rate of 77, no acute ST elevation or ectopy. EKG reviewed by attending physician) ECG interpretation date: 11/16/23 Discharge Plan Discharge Chief Complaint: Shortness of Breath/Dyspnea Clinical Impression: Chest pain Patient Disposition: Home, Self-Care Time of Disposition Decision: 20:36 Condition: Good Mode of Transportation: Private Vehicle Prescriptions / Home Meds: New ketorolac 10 mg tablet 10 mg PO TID PRN (Reason: pain) Qty: 10 0RF hydroxyzine pamoate [Vistaril] 25 mg capsule 25 mg PO Q6H PRN (Reason: anxiety) Qty: 20 0RF No Action norethindrone-e.estradiol-iron [Chandler Fe 10/31 (28)] 1 mg-20 mcg (21)/75 mg (7) tablet 1 tab PO DAILY Instructions: Chest Pain (ED) Stand Alone Forms: Portal Instructions Referrals: Physician,Non-Staff, [Physician] - 1 week Discharge Date/Time: 11/16/23 20:45
[2023-11-16 19:45] LABS: Basophils Percent Auto 0.4 % (0.2-2.0); Eosinophils Absolute Auto 0.2 10^3/uL (0.0-0.7); Eosinophils Percent Auto 1.7 % (0.9-7.0); Hematocrit 35.9 % (36.0-48.0); Immature Granulocytes Abs Auto 0.02 10^3/uL (0.00-0.03); Immature Granulocytes Pct Auto 0.2 % (0.0-0.5); Lymphocytes Absolute Auto 4.4 10^3/uL (1.2-3.8); Mean Corpuscular HGB Conc 30.6 g/dL (29.9-35.2); Mean Corpuscular Hemoglobin 25.5 pg (26.7-34.0); Mean Corpuscular Volume 83.1 fL (81.0-99.0); Monocytes Absolute Auto 0.9 10^3/uL (0.3-0.8); Monocytes Percent Auto 8.4 % (1.7-12.0); Neutrophils Absolute Auto 5.1 10^3/uL (1.4-6.5); Neutrophils Percent Auto 48.3 % (43.0-75.0); Platelet Count 268 10^3/uL (150-450); Red Blood Count 4.32 10^6/uL (4.20-5.40); White Blood Count 10.6 10^3/uL (4.0-11.0)
[2023-11-16 19:51] LABS: HCG Qualitative NEGATIVE (NEGATIVE)
[2023-11-16 19:53] LABS: D Dimer 0.44 mg/L FEU (<=0.59); INR 0.94
[2023-11-16 19:56] LABS: Alanine Aminotransferase 52 U/L (14-59); Albumin Globulin Ratio 0.7; Albumin Level 3.6 g/dL (3.4-5.0); Alkaline Phosphatase 93 U/L (46-116); Anion Gap 16.1; Aspartate Amino Transferase 26 U/L (15-37); BUN Creatinine Ratio 18.1; Bilirubin Total 0.2 mg/dL (0.2-1.0); Calcium 8.8 mg/dL (8.5-10.1); Carbon Dioxide 21.4 mmol/L (21.0-32.0); Chloride 106 mmol/L (98-107); Estimated GFR (African America >60 (>=60); Estimated GFR (Non-African Ame >60 (>=60); Globulin 4.9 g/dL; Glucose 98 mg/dL (74-106); Potassium 3.5 mmol/L (3.5-5.1); Sodium 140 mmol/L (136-145); Total Protein 8.5 g/dL (6.4-8.2)
--- NOTE | 2023-11-16 19:57 | XR_ITS ---
The [address] [address] Patient Name: FELIX ASKEW MRN: [id number] date: 2005 Sex: F Assigned Patient Location: ER Current Patient Location: ER Accession/Order Number: [id number] Exam Date: 11/16/2023 20:10 Report Date: 11/16/2023 20:27 At the request of: PAULINO PARIKH Procedure: XR chest 1V EXAM: XR chest 1V HISTORY: chest pain COMPARISON: None. TECHNIQUE: AP upright portable chest x-ray FINDINGS: The heart is not enlarged and the vasculature is not distended. No acute infiltrate, effusion or pneumothorax is identified. There is no apparent bronchitis. The osseous structures are grossly intact. XR/XR chest 1V IMPRESSION: No acute infiltrate or evidence of cardiac decompensation. Direct comparison with a previous study may be helpful in determining the chronicity of these findings. Electronically authenticated by: YAHIR CARRILLO Date: 11/16/2023 20:27
[2023-11-16 19:58] LABS: Troponin I High Sensitivity 4.3 pg/mL (4.0-51.3)
[2023-11-16] MEDS: METHYLPREDNISOLONE SOD SUCC PF 125 MG/2 ML VIAL IVP (20:16)
[2023-11-16] MEDS: LORAZEPAM 2 MG/ML 1 ML VIAL 0.5 MG IV (20:16)
[2023-11-16] MEDS: KETOROLAC TROMETHAMINE 30 MG/ML VIAL IVP (20:16)
== END 2023-11-16 20:45 | disposition home or self-care (01) ==
PROVIDERS: Physician Assistant; Emergency Provider Internal Medicine
DX: R07.9 Chest pain, unspecified (principal); Z79.3 Long term (current) use of hormonal contraceptives; K58.9 Irritable bowel syndrome, unspecified; D68.2 Hereditary deficiency of other clotting factors; Z87.891 Personal history of nicotine dependence
CPT/HCPCS: 36415; 71045; 80053; 84484; 84703; 85025; 85378; 85610; 93005; 96374; 96375; 99285; J1885; J2060; J2930

== ENCOUNTER 2023-11-22 12:49 | Emergency (ER) | payer OTHER, SELFPAY ==
[2023-11-22 12:52] VITALS: BP 146/95; PULSE 98; RESP 18; TEMP 36.7; O2SAT 98; BMI 41.6
--- OUTSIDE RECORDS SUMMARY | 2023-11-22 12:58 | XMS_ITS | CCD ---
Author Name Unknown Address [address] [place] [address] Organization [facility] Care Team Providers Care Linux Server Engineer Name Role Phone NON STAFF Primary Care Provider UnavailDO Cory Lazo Emergency Provider Lela Zavala Admitting Unavailable Karen Smith Primary Care Unavailable Lela Zavala Attending Unavailable NON STAFF Primary Care Unavailable Cory Lala Attending Unavailable Cory Lala Admitting Unavailable Jayson Perea Attending Unavailable Jayson Perea Admitting Unavailable NON STAFF Primary Care Unavailable Sally INTERNET MARKETING COORDINATOR- Lela Krishna Emergency Provider MD Karen Smith Primary Care Provider Michael Wilson Unavailable VIANEY ., DR ALONSO Attending Unavailable SMITH ., DR KAREN Krishna Primary Care Unavailable VIANEY ., DR ALONSO Admitting Unavailable VIANEY ., DR ALONSO Consulting Unavailable ZIEBER, DR GRAZYNA Salgado Consulting Unavailable REQUEST, DR [...] CASTELLANOS Attending Unavailable ERAN CASTELLANOS Attending Unavailable Edu Abel Unavailable Medications Current Medications Medication Drug Class(es) [...] 12 hrs for 10 day(s) Oct, Active escitalopram 10 mg oral tablet (1 source) Serotonin Reuptake Inhibitor Start: 11-18-2023 take 1 tablet by mouth every twenty-four hours Escitalopram Oxalate 10 MG 1 tablet Orally Once a day for 30 days Nov, Active Levonorgestrel-Ethi nyl Estrad (2 sources) Progestin, Estrogen, Progestin-containin g Intrauterine Device Start: 06-04-2022 take 1 tablet by mouth once daily Levonorgestrel-Eth inyl Estrad (Vienva) 0.1-20 mg-mcg tablet Active 1 [...] MG PO Q6H October 04, 2022 12:00am Mefloquine (1 source) Antimalarial Lariam Active omeprazole 20 mg delayed release oral capsule [...] Classification Problem Date Documented Da te Episodic/Chronic Anxiety disorders (2 sources) Anxiety; Translations: [Anxiety disorder, unspecified] Chronic Coagulation and hemorrhagic disorders (3 sources) Coagulation defect, unspecified; Translations: [Heterozygous Factor V Leiden mutation] Onset: 02-12-2023 Chronic Esophageal disorders (1 source) Gastro-esophageal reflux disease with esophagitis; Translations: [Gastroesophageal reflux disease with esophagitis without hemorrhage] Chronic Gastritis and duodenitis (2 sources) Gastritis; [...] pain; Translations: [Epigastric pain] Onset: 06-04-2022 Episodic Esophageal disorders (1 source) Esophageal disorders Nausea and vomiting (1 source) Nausea; Translations: [Nausea] Onset: 06-04-2022 Episodic Results Test Name Value Interpretation Reference Range Facility TSHon 03-10-2023 TSH 2.983 uIU/mL Normal 0.358-3.740 [facility] Comment on above: Performed By: #### D RVV #### [facility] [address] [place] [address] Dr. aPola Olivas B-2 GLYCOPROTEIN AB IGGon Beta-2 Glycoprotein I Ab, IgG <9 Normal 0-20 Comment on above: Result Comment: The reference interval reflects a 3SD or 99th percentile interval, which is thought to represent a potentially clinically significant result in accordance with the International Consensus Statement on the classification criteria for definitive antiphospholipid syndrome (APS). J Thromb Haem 2006;4:295-306. Performed By: #### B 2GPG #### [facility] [address] [address] [address] Paola Olivas FACTOR V LEIDEN MUTATION ANTHONY LYSISon 02-11-2023 Factor V Leiden Comment Abnormal [facility] Comment on above: Result Comment: Resu lt: c.1601G>A ([id number]) - Detected, Heterozygous . This result is associated with a 6- to 8-fold increased risk for venous thromboembolism. See Additional Clinical Information and Comments. Additional Clinical Information: Venous thromboembolism is a multifactorial disease influenced by genetic, environmental, and circumstantial risk factors. The c.1601G>A (p. [id number]) variant in the F5 gene, commonly referred [...] c.*97G>A variant and Factor V Leiden (PMID: 43784857). Additional risk factors include but are not [...] health care providers to discuss results at [phone] ([phone]). . Test Details: Variant Analyzed: c.1601G>A (p. [id number]), referred to as Factor V Leiden . [...] developed and its performance characteristics determined by [employer]. It has not been cleared or approved by the Food and Drug Administration. . References: Dustin S, Eva LINDSEY, Alcides R, Judi WW, Jaswinder JH; [facility] Professional Practice and Guidelines Committee. Addendum: [employer] consensus statement on factor V Leiden mutation testing. [employer]. 2020Dec 14. doi: 10.1038/s69391-519-73606-c. PMID: 00011498. . Elena MARIE. Factor V Leiden Thrombophilia. 1998February 22 (Updated 2017Oct 15). In: Ephraim MP, Casey HH, Clifford RA, et al., editors. Jocelyne(R) (Internet). [place] ([place]): [facility]; 7374-2039. Available from: https://www.ncbi.nlm.nih.gov/books/CID6049/ . Shola S, Eva LINDSEY, Luis X, Dominick B, Sandra EB, Nickie P, Seema CS; [employer] Laboratory Top Frame Maker Committee. Venous thromboembolism laboratory testing (factor V Leiden and factor II c.*97G>A), 2018 update: a technical standard of the [employer] and [employer] ([facility]). [employer] Med. 2018 Sep;20(12):5864-6989. doi: 10.1038/m64602-112-9411-j. Epub 2017Jul 16. PMID: 61843340. . Sudha Munguia, PhD, [facility] Frances Minor, PhD Joseph Drew, PhD, [facility] Andrey Oneil, PhD, [facility] Kirill Lentz, PhD, [facility] Rip Jack, PhD, [facility] Vera Whelan, PhD, [facility] Anjelica Seo, PhD, FAC Performed By: #### D RVV #### [facility] [address] [place] [address] Dr. Paola Olivas DILUTE ROSLYN'S VIPER VENOM on 02-10-2023 DRVVT Confirm Seconds NIY Normal Comment on above: Result Comment: Test ing Not Indicated Performed By: #### D RVV #### [facility] [address] [address] [address] Paola Olivas DRVVT Ratio NIY Normal Comment on above: Result Comment: Test ing Not Indicated Performed By: #### D RVV #### [facility] [address] [place] [address] Dr. Paola Olivas DRVVT Screen Seconds 44.2 sec Normal Comment on above: Result Comment: Refe rence Range: <= 47.0 Performed By: #### D RVV #### [facility] [address] [place] [address] Dr. Paola Olivas ANTITHROMBIN DEFICIENCY PROF on 02-09-2023 Antithrombin Activity 101 % Normal 75-135 Comment on above: Result Comment: Dire ct Xa inhibitor anticoagulants such as rivaroxaban, apixaban and edoxaban will lead to spuriously elevated antithrombin activity levels possibly masking a deficiency. Performed By: #### H CVPCRR #### [facility] [address] [place] [address] Dr. Paola Olivas Antithrombin Antigen 81 % Normal 72-124 [facility] Comment on above: Result Comment: This test was developed and its performance characteristics determined by [employer]. It has not been cleared or approved by the Food and Drug Administration. Performed By: #### H CVPCRR #### [facility] [address] [place] [address] Dr. Paola Olivas B2-GLYCOPROTEIN 1 AB IGMon 0 02-09-2023 Beta-2 Glycoprotein I Ab, IgM <9 Normal 0-32 [facility] Comment on above: Result Comment: The reference interval reflects a 3SD or 99th percentile interval, which is thought to represent a potentially clinically significant result in accordance with the International Consensus Statement on the classification criteria for definitive antiphospholipid syndrome (APS). J Thromb Haem 2006;4:295-306. Performed By: #### B GLYIGM #### [facility] [address] [place] [address] Dr. Paola Olivas PROTEIN C FUNC ACTIVITYon Protein C-Functional 98 % Normal 73-180 Comment on above: Performed By: #### P RCFACT #### [facility] [address] [place] [address] Dr. Paola Olivas PROTEIN S, FREEon 02-09-2023 Protein S, Free 70 % Normal 61-136 [facility] Comment on above: Performed By: #### P ROTSFR #### [facility] [address] [place] [address] Dr. Paola Olivas ANTICARDIOLIPIN AB (ADELAIDE) IGG on 02-07-2023 Anticardiolipin Ab,IgG,Qn <9 Normal 0-14 Comment on above: Result Comment: Nega tive: <15 Indeterminate: 15 - 20 Low-Med Positive: >20 - 80 High Positive: >80 Performed By: #### C ARDLIP #### [facility] [address] [place] [address] Dr. Paola Olivas ANTICARDIOLIPIN AB (ADELAIDE) IGM on 02-07-2023 Anticardiolipin Ab,IgM,Qn 36 MPL U/mL Critically high 0-12 Comment on above: Result Comment: Nega tive: <13 Indeterminate: 13 - 20 Low-Med Positive: >20 - 80 High Positive: >80 Performed By: #### H CVPCRR #### [facility] [address] [place] [address] Dr. Paola Olivas HEP B SURFACE ANTIGEN SCREEN on 02-07-2023 HBsAg Screen Negative Normal Negative Comment on above: Performed By: #### H CVPCRR #### [facility] [address] [address] [address] Paola Olivas HEPATITIS C VIRUS AB W/ REFL EX QUANTon 02-07-2023 HCV AB Non-Reactive Normal Non Reactive [facility] Comment on above: Performed By: #### H CVPCRR #### [facility] [address] [place] [address] Dr. Paola Olivas Interpretation: Comment Normal [facility] Comment on above: Result Comment: Not infected with HCV unless early or acute infection is suspected (which may be delayed in an immunocompromised individual), or other evidence exists to indicate HCV infection. Performed By: #### H CVPCRR #### [facility] [address] [place] [address] Dr. Paola Olivas HIV 1 AND 2 WITH REFLEXon HIV Screen 4th Generation wRfx Non-Reactive Normal Non Reactive Comment on above: Result Comment: HIV Negative HIV-1/HIV-2 antibodies and HIV-1 p24 antigen were NOT detected. There is no laboratory evidence of HIV infection. Performed By: #### H CVPCRR #### [facility] [address] [place] [address] Dr. Paola Olivas RPR QUANTon 02-07-2023 Rapid Plasma Reagin, Quant Non-Reactive Normal NonRea<1:1 Comment on above: Result Comment: Plea se Note: This test does not meet current guidelines for screening and diagnosis of syphilis. This test is intended for following treatment response in patients being treated for syphilis infection. To screen for syphilis infection, a reflex cascade that includes both RPR and a treponema-specific assay should be utilized, such as Treponema pallidum (Syphilis) Screening [place] (280891) or Rapid Plasma Reagin (RPR) Test With Reflex to Quantitative RPR and Confirmatory Treponema pallidum Antibodies (153948). Performed By: #### H CVPCRR #### [facility] [address] [place] [address] Dr. Paola Olivas RUBELLA AB IGGon 02-07-2023 Rubella Antibodies, IgG <0.90 Critically low Immune >0.99 Comment on above: Result Comment: Non- immune <0.90 Equivocal 0.90 - 0.99 Immune >0.99 Performed By: #### R UBIGG #### [facility] [address] [place] [address] Dr. Paola Olivas BOX TEST SENT OUTon 02-07-20 SENT TO REF LAB 2023 Normal [facility] Comment on above: Performed By: #### H CVPCRR #### [facility] [address] [place] [address] Dr. Paola Olivas CBC AUTO DIFFon 2023 BASO # 0.0 103/ul Normal 0.0-0.1 Comment on above: Performed By: #### C BC #### [facility] [address] [place] [address] Dr. Paola Olivas Basophils/100 WBC (Bld) 0.2 % Normal 0.2-2.0 Comment on above: Performed By: #### C BC #### [facility] [address] [place] [address] Dr. Paola Olivas EO # 0.1 103/ul Normal 0.0-0.7 Comment on above: Performed By: #### C BC #### [facility] [address] [place] [address] Dr. Paola Olivas Eosinophils/100 WBC (Bld) 0.5 % Critically low 0.9-7.0 Comment on above: Performed By: #### C BC #### [facility] [address] [place] [address] Dr. Paola Olivas Erythrocyte distribution width (RBC) [Ratio] 12.9 % Normal 11.0-15.0 Comment on above: Performed By: #### C BC #### [facility] [address] [place] [address] Dr. Paola Olivas Hematocrit (Bld) [Volume fraction] 34.5 % Critically low 36.0-48.0 Comment on above: Performed By: #### C BC #### [facility] [address] [place] [address] Dr. Paola Olivas Hemoglobin (Bld) [Mass/Vol] 11.6 g/dL Critically low 12.0-16.0 Comment on above: Performed By: #### C BC #### [facility] [address] [place] [address] Dr. Paola Olivas IG # 0.03 10e3/ul Normal 0.00-0.03 Comment on above: Performed By: #### C BC #### [facility] [address] [place] [address] Dr. Paola Olivas IG % 0.3 % Normal 0.0-0.5 Comment on above: Performed By: #### C BC #### [facility] [address] [place] [address] Dr. aPola Olivas LYMPH # 1.8 103/ul Normal 1.2-3.8 Comment on above: Performed By: #### C BC #### [facility] [address] [place] [address] Dr. Paola Olivas Lymphocytes/100 WBC (Bld) 18.5 % Critically low 20.5-60.0 Comment on above: Performed By: #### C BC #### [facility] [address] [place] [address] Dr. Paola Olivas MANUAL DIFF REQ NO Normal [facility] Comment on above: Performed By: #### C BC #### [facility] [address] [place] [address] Dr. Paola Olivas MCH (RBC) [Entitic mass] 29.6 pg Normal 26.7-34.0 Comment on above: Performed By: #### C BC #### [facility] [address] [place] [address] Dr. Paola Olivas MCHC (RBC) [Mass/Vol] 33.6 g/dL Normal 29.9-35.2 Comment on above: Performed By: #### C BC #### [facility] [address] [place] [address] Dr. Paola Olivas MCV (RBC) [Entitic vol] 88.0 fL Normal 81.0-99.0 Comment on above: Performed By: #### C BC #### [facility] [address] [place] [address] Dr. Paola Olivas MONO # 0.9 103/ul Critically high 0.3-0.8 [facility] Comment on above: Performed By: #### C BC #### [facility] [address] [place] [address] Dr. Paola Olivas Monocytes/100 WBC (Bld) 9.3 % Normal 1.7-12.0 Comment on above: Performed By: #### C BC #### [facility] [address] [place] [address] Dr. Paola Olivas NEUT # 6.8 103/ul Critically high 1.4-6.5 [facility] Comment on above: Performed By: #### C BC #### [facility] [address] [place] [address] Dr. Paola Olivas Neutrophils/100 WBC (Bld) 71.2 % Normal 43.0-75.0 Comment on above: Performed By: #### C BC #### [facility] [address] [place] [address] Dr. Paola Olivas Platelet mean volume (Bld) [Entitic vol] 10.9 fL Normal 9.5-13.5 Comment on above: Performed By: #### C BC #### [facility] [address] [place] [address] Dr. Paola Olivas PLT 214 103/ul Normal 150-450 [facility] Comment on above: Performed By: #### C BC #### [facility] [address] [place] [address] Dr. Paola Olivas RBC 3.92 106/ul Critically low 4.20-5.40 [facility] Comment on above: Performed By: #### C BC #### [facility] [address] [place] [address] Dr. Paola Olivas WBC 9.5 103/ul Normal 4.0-11.0 [facility] Comment on above: Performed By: #### C BC #### [facility] [address] [address] [address] Paola Olivas CULTURE URINEon 2023 CULTURE URINE Culture Observations: MODERATE GROWTH OF MIXED GENITAL GUSTAVO. NO POTENTIAL PATHOGENS SEEN. Normal [facility] Comment on above: Performed By: #### H CVPCRR #### [facility] [address] [place] [address] Dr. Paola Olivas GLYCOHEMOGLOBIN A1Con 2022 ADA RECOMMENDATION SEE BELOW Normal [facility] Comment on above: Result Comment: ADA RECOMMENDED LIMIT 4.0 - 6.0 ADA THERAPEUTIC TARGET < 7.0 ACTION SUGGESTED > 7.0 Performed By: #### H CVPCRR #### [facility] [address] [place] [address] Dr. Paola Olivas Glucose [Mass/Vol] 94 mg/dL Normal [facility] Comment on above: Performed By: #### H CVPCRR #### [facility] [address] [place] [address] Dr. Paola Olivas HbA1c (Bld) [Mass fraction] 4.9 % Normal 4.5-6.2 [facility] Comment on above: Performed By: #### H CVPCRR #### [facility] [address] [place] [address] Dr. Paola Olivas TSHon 2023 TSH 4.338 uIU/mL Critically high 0.516-4.[address] [facility] Comment on above: Performed By: #### T SH #### [facility] [address] [place] [address] Dr. Paola Olivas TYPE AND SCREENon 2023 TYPE AND SCREEN Negative Normal [facility] Comment on above: Performed By: #### H CVPCRR #### [facility] [address] [place] [address] Dr. Paola Olivas US PREG TVon 02-05-2023 [...] live intrauterine . Electronically authenticated by: GRAZYNA AGOSTO Date: 2023-02-05 16:00 Normal Quick Strepon 10-21-2022 S. pyogenes Org specific cx Ql (Throat) Positive [facility] Other Quick Strep [facility] [place] Other Albumin [Mass/volume] in Ser um or PlasmaOrdered By: Cory Lala on 06-04-2022 Albumin [Mass/Vol] 3.8 g/dL 3.2-5.5 [facility] Basic Metabolic Panelon 05-13 Calcium [Mass/Vol] 9.0 mg/dL Normal 8.2-10.2 [facility] Comment on above: Performed By: #### C BC, HEPATIC, BMP, LIPASE #### [facility] [address] Chloride [Moles/Vol] 105 mmol/L Normal 95-114 [facility] Comment on above: Performed By: #### C BC, HEPATIC, BMP, LIPASE #### [facility] [address] CO2 [Moles/Vol] 21.2 mmol/L Low 22.0-30.0 [facility] Comment on above: Performed By: #### C BC, HEPATIC, BMP, LIPASE #### [facility] [address] Creatinine [Mass/Vol] 0.66 mg/dL Normal 0.44-1.[address] [facility] Comment on above: Performed By: #### C BC, HEPATIC, BMP, LIPASE #### [facility] [address] [place] [address] Creatinine Clr Calc Pharmacy 149.57 [facility] Comment on above: Performed By: #### C BC, HEPATIC, BMP, LIPASE #### [address] Estimated GFR ( Nika > 60 [facility] Comment on above: Result Comment: GFR estimated reference range: According to KDOQI guidelines, <60 ml/min/1.73m2 is sufficient to diagnose a patient with chronic kidney disease. Performed By: #### C BC, HEPATIC, BMP, LIPASE #### [address] Estimated GFR (Non- Am > 60 [facility] Comment on above: Performed By: #### C BC, HEPATIC, BMP, LIPASE #### [address] Glucose [Mass/Vol] 123 mg/dL High 70-100 [facility] Comment on above: Result Comment: [place] Glucose Reference Range is dependent on time and content of last meal. Glucose of more than 200 mg/dL in a nonstressed, ambulatory subject supports the diagnosis of Diabetes Mellitus. ADA recommended reference range Performed By: #### C BC, HEPATIC, BMP, LIPASE #### [address] Potassium [Moles/Vol] 3.7 mmol/L Normal 3.5-5.[address] [facility] Comment on above: Performed By: #### C BC, HEPATIC, BMP, LIPASE #### [address] Sodium [Moles/Vol] 138 mmol/L Normal 136-146 [facility] Comment on above: Performed By: #### C BC, HEPATIC, BMP, LIPASE #### [address] Urea nitrogen [Mass/Vol] 7 mg/dL Low 9-23 [facility] Comment on above: Performed By: #### C BC, HEPATIC, BMP, LIPASE #### [address] Basophils Auto (Bld) [#/Vol] Ordered By: Cory Lala on 06-04-2022 Basophils (Bld) [#/Vol] 0.0 10*3/uL 0.0-0.2 [facility] Basophils/100 WBC Auto (Bld) Ordered By: Cory Lala on 06-04-2022 Basophils/100 WBC (Bld) 0.3 % . [facility] Blood hemoglobin measurement (mass/volume)Ordered By: Cory Lala on 06-04-2022 Hemoglobin (Bld) [Mass/Vol] 12.6 g/dL 11.8-15.4 [facility] Blood leukocytes automated c ount (number/volume)Ordered By: Cory Lala on 06-04-2022 WBC (Bld) [#/Vol] 7.3 10*3/uL 4.5-11.0 [facility] Complete Blood Count Auto Di ffon 06-04-2022 Basophils (Bld) [#/Vol] 0.0 10*3/uL Normal 0.0-0.2 [facility] Comment on above: Result Comment: PERF ORMED BY: [place] [address] PATHOLOGIST HEAD OF CYTOGENETICS LEORA HIGGINS M.D. Performed By: #### C BC, HEPATIC, BMP, LIPASE #### [facility] [address] [place] [address] Basophils/100 WBC (Bld) 0.3 % Normal . [facility] Comment on above: Performed By: #### C BC, HEPATIC, BMP, LIPASE #### [facility] [address] [place] [address] [place] Eosinophils (Bld) [#/Vol] 0.0 10*3/uL Normal 0.0-0.45 [facility] Comment on above: Performed By: #### C BC, HEPATIC, BMP, LIPASE #### [facility] [address] [place] [address] [place] Eosinophils/100 WBC (Bld) 0.6 % Normal . [facility] Comment on above: Performed By: #### C BC, HEPATIC, BMP, LIPASE #### [address] Erythrocyte distribution width (RBC) [Ratio] 13.0 % Normal 11.9-15.3 [facility] Comment on above: Performed By: #### C BC, HEPATIC, BMP, LIPASE #### [address] Hematocrit (Bld) [Volume fraction] 37.6 % Normal 34.0-46.4 [facility] Comment on above: Performed By: #### C BC, HEPATIC, BMP, LIPASE #### [address] Hemoglobin (Bld) [Mass/Vol] 12.6 g/dL Normal 11.8-15.4 [facility] Comment on above: Performed By: #### C BC, HEPATIC, BMP, LIPASE #### [address] Lymphocytes (Bld) [#/Vol] 1.4 10*3/uL Normal 1.00-4.8 [facility] Comment on above: Performed By: #### C BC, HEPATIC, BMP, LIPASE #### [address] Lymphocytes/100 WBC (Bld) 19.6 % Normal . [facility] Comment on above: Performed By: #### C BC, HEPATIC, BMP, LIPASE #### [address] MCH (RBC) [Entitic mass] 29.9 pg Normal 24.7-34.3 [facility] Comment on above: Performed By: #### C BC, HEPATIC, BMP, LIPASE #### [address] MCV (RBC) [Entitic vol] 89.0 fL Normal 80-100 [facility] Comment on above: Performed By: #### C BC, HEPATIC, BMP, LIPASE #### [address] Mean Corpuscular HGB Conc 33.6 g/dL Normal 32.0-35.0 [facility] Comment on above: Performed By: #### C BC, HEPATIC, BMP, LIPASE #### [facility] [address] [place] [address] Monocytes (Bld) [#/Vol] 0.4 10*3/uL Normal 0.0-0.8 [facility] Comment on above: Performed By: #### C BC, HEPATIC, BMP, LIPASE #### [address] Monocytes/100 WBC (Bld) 4.9 % Normal . [facility] Comment on above: Performed By: #### C BC, HEPATIC, BMP, LIPASE #### [address] Neutrophils (Bld) [#/Vol] 5.4 10*3/uL Normal 1.8-7.7 [facility] Comment on above: Performed By: #### C BC, HEPATIC, BMP, LIPASE #### [address] Neutrophils/100 WBC (Bld) 74.6 % Normal . [facility] Comment on above: Performed By: #### C BC, HEPATIC, BMP, LIPASE #### [address] Nucleated RBC/100 WBC (Bld) [Ratio] 0.0 % Normal 0-0.5 [facility] Comment on above: Performed By: #### C BC, HEPATIC, BMP, LIPASE #### [address] Platelet mean volume (Bld) [Entitic vol] 9.2 fL Normal 6.3-10.7 [facility] Comment on above: Performed By: #### C BC, HEPATIC, BMP, LIPASE #### [address] Street Platelets (Bld) [#/Vol] 274 10*3/uL Normal 150-450 [facility] Comment on above: Performed By: #### C BC, HEPATIC, BMP, LIPASE #### [address] [place] [address] [place] RBC (Bld) [#/Vol] 4.23 10*6/uL Normal 3.60-5.00 [facility] Comment on above: Performed By: #### C BC, HEPATIC, BMP, LIPASE #### [facility] [address] [place] [id number] [place] WBC (Bld) [#/Vol] 7.3 10*3/uL Normal 4.5-11.0 [facility] Comment on above: Performed By: #### C BC, HEPATIC, BMP, LIPASE #### [facility] [address] Creatinine and Glomerular fi ltration rate.predicted panel (S/P/Bld)Ordered By: Cory Lala on 06-04-2022 Creatinine [Mass/Vol] 0.66 mg/dL 0.44-1.[address] [facility] Direct bilirubin measurement Ordered By: Cory Lala on 06-04-2022 Bilirubin.direct [Mass/Vol] 0.2 mg/dL 0.0-0.4 [facility] Eosinophils Auto (Bld) [#/Vo l]Ordered By: Cory Lala on 06-04-2022 Eosinophils (Bld) [#/Vol] 0.0 10*3/uL 0.0-0.45 [facility] Eosinophils/100 WBC Auto (Bl d)Ordered By: Cory Lala on 06-04-2022 Eosinophils/100 WBC (Bld) 0.6 % . [facility] Erythrocyte distribution wid th Auto (RBC) [Ratio]Ordered By: Cory Lala on 06-04-2022 Erythrocyte distribution width (RBC) [Ratio] 13.0 % 11.9-15.3 [facility] Estimated glomerular filtrat ion rate (GFR) non- AmericanOrdered By: Cory Lala on 06-04-2022 GFR/1.73 sq M.predicted among non-blacks MDRD (S/P/Bld) [Vol rate/Area] > 60 mL/Min [facility] Globulin Calc (S) [Mass/Vol] Ordered By: Cory Lala on 06-04-2022 Globulin (S) [Mass/Vol] 3.7 g/dL [facility] Hematocrit Auto (Bld) [Volum e fraction]Ordered By: Cory Lala on 06-04-2022 Hematocrit (Bld) [Volume fraction] 37.6 % 34.0-46.4 [facility] Hepatic Panelon 06-04-2022 Albumin [Mass/Vol] 3.8 g/dL Normal 3.2-5.5 [facility] Comment on above: Performed By: #### C BC, HEPATIC, BMP, LIPASE #### [facility] [address] Albumin/Globulin [Mass ratio] 1.0 {ratio} Normal [facility] Comment on above: Performed By: #### C BC, HEPATIC, BMP, LIPASE #### [address] ALP [Catalytic activity/Vol] 57 U/L Normal 32-92 [facility] Comment on above: Performed By: #### C BC, HEPATIC, BMP, LIPASE #### [facility] [address] [place] [address] ALT [Catalytic activity/Vol] 39 U/L Normal 10-60 [facility] Comment on above: Performed By: #### C BC, HEPATIC, BMP, LIPASE #### [address] AST [Catalytic activity/Vol] 23 U/L Normal 10-42 [facility] Comment on above: Performed By: #### C BC, HEPATIC, BMP, LIPASE #### [facility] [address] [place] [address] Bilirubin [Mass/Vol] 0.6 mg/dL Normal 0.3-1.2 [facility] Comment on above: Performed By: #### C BC, HEPATIC, BMP, LIPASE #### [place] [address] [place] Bilirubin,Indirect 0.4 mg/dL Normal [facility] Comment on above: Performed By: #### C BC, HEPATIC, BMP, LIPASE #### [place] [address] [place] Bilirubin.indirect [Mass/Vol] 0.2 mg/dL Normal 0.0-0.4 [facility] Comment on above: Performed By: #### C BC, HEPATIC, BMP, LIPASE #### [address] Globulin (S) [Mass/Vol] 3.7 g/dL Normal [facility] Comment on above: Performed By: #### C BC, HEPATIC, BMP, LIPASE #### [address] Protein [Mass/Vol] 7.5 g/dL Normal 6.1-7.9 [facility] Comment on above: Performed By: #### C BC, HEPATIC, BMP, LIPASE #### [address] Laboratory - Chemistry and C hemistry - challengeOrdered By: Cory Lala on 06-04-2022 Lipase [Catalytic activity/Vol] 26.0 U/L [facility] Laboratory - Hematology and Cell countsOrdered By: Cory Lala on 06-04-2022 Nucleated RBC/100 WBC (Bld) [Ratio] 0.0 % 0-0.5 [facility] Lipaseon 06-04-2022 Lipase [Catalytic activity/Vol] 26.0 U/L Normal [facility] Comment on above: Result Comment: PERF ORMED BY: [place] [address] PATHOLOGIST HEAD OF CYTOGENETICS LEORA HIGGINS M.D. Performed By: #### C BC, HEPATIC, BMP, LIPASE #### [facility] [address] [place] [address] Lymphocytes Auto (Bld) [#/Vo l]Ordered By: Cory Lala on 06-04-2022 Lymphocytes (Bld) [#/Vol] 1.4 10*3/uL 1.00-4.8 [facility] Lymphocytes/100 WBC Auto (Bl d)Ordered By: Cory Lala on 06-04-2022 Lymphocytes/100 WBC (Bld) 19.6 % . [facility] MCH Auto (RBC) [Entitic mass ]Ordered By: Cory Lala on 06-04-2022 MCH (RBC) [Entitic mass] 29.9 pg 24.7-34.3 [facility] MCHC Auto (RBC) [Mass/Vol]Or dered By: Cory Lala on 06-04-2022 MCHC (RBC) [Mass/Vol] 33.6 g/dL 32.0-35.[address] [facility] MCV Auto (RBC) [Entitic vol] Ordered By: Cory Lala on 06-04-2022 MCV (RBC) [Entitic vol] 89.0 fL 80-100 [facility] Monocytes Auto (Bld) [#/Vol] Ordered By: Cory Lala on 06-04-2022 Monocytes (Bld) [#/Vol] 0.4 10*3/uL 0.0-0.8 [facility] Monocytes/100 WBC Auto (Bld) Ordered By: Cory Lala on 06-04-2022 Monocytes/100 WBC (Bld) 4.9 % . [facility] Neutrophils Auto (Bld) [#/Vo l]Ordered By: Cory Lala on 06-04-2022 Neutrophils (Bld) [#/Vol] 5.4 10*3/uL 1.8-7.7 [facility] Neutrophils/100 WBC Auto (Bl d)Ordered By: Cory Lala on 06-04-2022 Neutrophils/100 WBC (Bld) 74.6 % . [facility] No Panel InformationOrdered By: Cory Lala on 06-04-2022 Estimated GFR () > 60 mL/Min [facility] Comment on above: GFR estimated refere nce range: According to KDOQI guidelines, <60 ml/min/1.73m2 is sufficient to diagnose a patient with chronic kidney disease. Pharmacy Creatinine Clearance (Chem 149.57 [facility] Platelet mean volume Auto (B ld) [Entitic vol]Ordered By: Cory Lala on 06-04-2022 Platelet mean volume (Bld) [Entitic vol] 9.2 fL 6.3-10.7 [facility] Platelets Auto (Bld) [#/Vol] Ordered By: Cory Lala on 06-04-2022 Platelets (Bld) [#/Vol] 274 10*3/uL 150-450 [facility] Protein [Mass/volume] in Ser um or PlasmaOrdered By: Cory Lala on 06-04-2022 Protein [Mass/Vol] 7.5 g/dL 6.1-7.9 [facility] RBC Auto (Bld) [#/Vol]Ordere d By: Cory Lala on 06-04-2022 RBC (Bld) [#/Vol] 4.23 10*6/uL 3.60-5.00 [facility] Serum or plasma alanine iraheta otransferase measurement without P-5'-P (enzymatic activiOrdered By: Cory Lala on 06-04-2022 ALT No additional P-5'-P [Catalytic activity/Vol] 39 U/L 10-60 [facility] Serum or plasma albumin/glob ulin mass ratioOrdered By: Cory Lala on 06-04-2022 Albumin/Globulin [Mass ratio] 1.0 {ratio} [facility] Serum or plasma alkaline brenda sphatase measurement (enzymatic activity/volume)Ordered By: Cory Lala on 06-04-2022 ALP [Catalytic activity/Vol] 57 U/L 32-92 [facility] Serum or plasma aspartate am inotransferase measurement (enzymatic activity/volume)Ordered By: Cory Lala on 06-04-2022 AST [Catalytic activity/Vol] 23 U/L 10-42 [facility] Serum or plasma calcium mili urement (mass/volume)Ordered By: Cory Lala on 06-04-2022 Calcium [Mass/Vol] 9.0 mg/dL 8.2-10.2 [facility] Serum or plasma chloride ciara surement (moles/volume)Ordered By: Cory Lala on 06-04-2022 Chloride [Moles/Vol] 105 mmol/L 95-114 [facility] Serum or plasma glucose mili urement (mass/volume)Ordered By: Cory Lala on 06-04-2022 Glucose [Mass/Vol] 123 mg/dL 70-100 [facility] Comment on above: ADA recommended refe rence range Random Glucose Reference Range is dependent on time and content of last meal. Glucose of more than 200 mg/dL in a nonstressed, ambulatory subject supports the diagnosis of Diabetes Mellitus. Serum or plasma non-glucuron idated bilirubin measurement (mass/volume)Ordered By: Cory Lala on 06-04-2022 Bilirubin.indirect [Mass/Vol] 0.4 mg/dL [facility] Serum or plasma potassium me asurement (moles/volume)Ordered By: Cory Lala on 06-04-2022 Potassium [Moles/Vol] 3.7 mmol/L 3.5-5.[address] [facility] Serum or plasma sodium measu rement (moles/volume)Ordered By: Cory Lala on 06-04-2022 Sodium [Moles/Vol] 138 mmol/L 136-146 [facility] Serum or plasma total biliru bin measurement (mass/volume)Ordered By: Cory Lala on 06-04-2022 Bilirubin [Mass/Vol] 0.6 mg/dL 0.3-1.2 [facility] Serum or plasma total carbon dioxide measurement (moles/volume)Ordered By: Cory Lala on 06-04-2022 CO2 [Moles/Vol] 21.2 mmol/L 22.0-30.0 [facility] Serum or plasma urea nitroge n measurement (mass/volume)Ordered By: Cory Lala on 06-04-2022 Urea nitrogen [Mass/Vol] 7 mg/dL 9-23 [facility] US gall bladderon 06-04-2022 US gall bladder [facility] [address] Ultrasound Report Signed Patient: Marce Juarez MR#: [id number] 722 : 2005 Acct:[id number] Age/Sex: 17 / F ADM Date: 06/04/22 Loc: ER Room: Type: [facility] ER Attending Dr: Ordering Provider: Cory Lala [...] . Impression dictated by: Joseph Angela Jr., D.OWinter06/04/2022 8:52 AM Dictation Location: [place] [address] Tech: Rachelle Gomez Transcribed By: GREG 06/04/22851 Dictated By: Joseph Angela Jr, DO 06/04/22 0849 Signed By: 06/04/22851 Normal [facility] SARS-CoV-2 (COVID-19) RNA GIULIANA+probe Ql (Unsp spec) Negative Normal Negative [facility] Comment on above: Order Comment: Healt hcare Worker?: N Result Comment: Testing for SARS-CoV-2 by RT-PCR This test was developed and its performance characteristics determined by [employer] and validated at the [facility]. This test has not been FDA [...] is terminated or revoked sooner. PERFORMED BY: [place] [address] PATHOLOGIST HEAD OF CYTOGENETICS LEORA HIGGINS M.D. Performed By: #### C OVID 19 [facility] #### [address] Coding Summaryon 07-29-2021 Coding Summary [employer]Base 64 TycysdeqPKl0pZl+PGhl YWQ+EH7HZXVkD91fdHIp bR9BR3iAZO6XGYDHBYNR WE4JRH4zxBM0XCyaZ8Vw biAv OhwkfUXnGT69SKj1NGF4 qOdgHZarhP9uxHZnE8u7 WmNvUK77pY08GOnwDFGf JgD0XwDomjrbzPMg L2yhEnJysPYgFej+PHRh YmxlIHdpZHRoPScxMDAl RzYuxPctUJ2tYw9mXOOy LWNvbGxhcHNlOiBj f0ubKEQwMRbtRL5mvMwm J3JhgOB4EDLwk4g0Xp38 dHI+WDCnTJC8vAshYSya d785LcNkw2azSKG0 mFCgOXscJXG9Y49tz2F6 ZMMbHAIrDPB0hNV9wM1e nZjwaaefF7OgtZYhSlZ1 ITM9nQWmrD3sbRvc vmolgN3rWsv+K81ZEJ2V TLDWGA4UNei7U9EtHohg dHI+QU58ITAiIB30zVZw bWNth2douSu3OwCd RKYbWIZ6vXuuEReds2Va XPWiB40jeICks0W2ARLx iSdbqRCbFeJabXY3pO5z GWpycoqcu1gtilrd Eyvgn8bnjr70lE47L18p WAztXIBxLNB9ZYMvJLId tPznhw0imL9nMr3+IDxj l4xyg1gsyUy2EuAs LDYkiuHxqLcrDJA4t7Vo Dg96A0NscFgdl8GsRue8 ox56lIZqj2H4fQU4CLdd MRHoyJ6gDMemWdW7 OJQjQiWtyE66rFQzZHbe Cu1cpAqnzPlvJA6cKKTh coqsFKNakW7pGMMhhLJz kAvbAH2mHXDddnge t772EiNpCIL5KLYwqOIq X9RelE8uCcMdSDToHILf G3WdjOVvJExcB203LBwh RyN1OCYpjqQfS8Pw LWOsqSqbLaG5c9B4Sm1B e2AbfjilFAS4ZJnkQLZs DlQ0EhXcYmT7O4RiVin9 MBTquQaoEL7aK1Ob BXJyxutrmpaaaPG7ZFAt ZPKilR07nRIpKAptFm3t h5R5h606PSTfALXopT50 Lh2ypTizVRObiCBC cF4wllygo4frbywpXoWo FGDaEOh3GOz4AZVyfEmp LwDuAGS8VpW9MXR7nLEk mY0gtBmpvqdfaE2z Oyc+C43lfH2fTAB0OHK6 tnvaTXWfsmTxRV27TO58 C0MmCoggsLWwbEU+PGRp ksGaoIexFP5eEcOs q4doh0YsFQplJ1YmXJRl LYmaFfy5VVTtUOH4mCH4 nS3gFIMiEHuun6X7fBX4 R0IitkYbzp7wd1ef HYVhMBcxN14cvETgx7H7 OHWyvGU8WCLhjRdnBoTz zB68Tik+CUQhyShzt9Is Pyktp0hye3wzxZb7 IjMwJSIgdmFsaWduPSJ0 c4AiVt69M43bTCkoCIKy XJHbENHgQGFjdBkmtj2x aJ6kFw0+PGNvbCB3 rES4kG2jLZFtGnE0NDty X254GvYmxHMsGbcby2md k8fibTo5BaOyBYZxaiEx nVyiIAG3d6OrUb78 V33wGUbfYWDlZKYzVWVa CUYclQhxyw0imK1pAi9+ BP2rr0fnvf48rW77pKC+ ABYbVCP1yVotZNdr QTZfpB1vOJevCqF4LGNq BcTtzC79uSBqQXuyEz0q bWbwkVqjHR3dVJMhmcfn t479UmQuv3beZGCl hCTnXEgcGQT9F53qu0V1 XNOnRUAqKEX1dPW5cM3t bGlnbjogbGVmdDsgdmVy gImvSDnjJDkfL317 IHRvcDsnPlBhdGllbnQg LtLhHZn3M3HwWaj4WTXd qMmkHN6lmBTvEBjuMt4s wPsspAttOZ3aKQNy rmoqp855AzXnj4kxIIVq mVXdNGtsABX2L12ps9A8 ZGEoCYEgMAL1yAE9dU6c bGlnbjogbGVmdDsg ynBweYvcFIzwMApoD695 IHRvcDsnPkJpcnRoIERh sOZ9BE68DZ16tDBox7Z6 yEJ6D5EfOGQeuhei wqpoxYM9QVFbMQBspI24 Bl8hsCjtYm6rFCPiVWN9 YORafEMqQ9RwnC6fGbPe WSGcNKYhT0EmiNWw SAggP905DIhjNcF8WDZn ugWwE2LnVUMbdRjnDrE6 g1G5Ob6IP4W6UC42TI13 qGLid3Z9lLQ4F7Bk QNCormatpdncoWU6AJNa EXTbdZ42Uy6pgGdcCp9v UMJdTMD1VWTigWXwJ6Dr fW7xMmOwXWKhMTCk R4LklHQaSKijH717GQhs DgH8VZPsmxPcP0BbFVBy mHivSnD5w4I6Wt5SOCj8 OP44QM14eECwv3X2 hCV8A2LuBOGsklfamceq xRI1DNVpTZJkqR41Wd2u wBqnQi2cFQFzMCO3WDVk xIGdX7PunB2wHfIp EDDnXUTwK7NvqTWdYJdo O887LJimNnT3HIHydqWc T3ExUBOcwUiaAuI8j3R8 Yz8RJVBmAY81UTI1 uDB9FA54PX19V8UcOnio dGFibGU+PHRhYmxlIHdp ZHRoPScxMDAlJyBzdHls RT1oAm9xPDZwNGLf rArlqWOoNkRfi8cmFNFm AGrqPJ6mdOidM2HjpFV1 CWMza2y3Px52N60uG4Li dXA+WEOepYA2kDV9 fO6sTpQgIzL1BMkvW270 YtGvmQBtRiykg8hvq7im ySu2HzW5XUHzhfEaaDdd GIZ0y1FgZa28X70x IHdpZHRoPSIxNSUiIHZh rGgywf0nlO5vLz5+PGNv aPN6tPG4vN8oDaXeMvC8 KLqrB283AqJhxBXn Sdhhy7vdv8euvFo0ZcQx MCGlnhYilJthFAA5z5Eq Tz60M3KzsImuf5NqWlu7 fi98hBToh7S0dDW6 J3UiNLBgajiyiBYtlMkp YT1yCMRwehgdOLOsrH7k AZQlA4e7GqAnZkV7VBia R9KaqsO9NFPcuSDk AOmhAMG7N59zm5I5BIHj YAUkOIJ0zYX8iF2pfIbe bjogbGVmdDsgdmVydGlj HHpqEVnzF318QEWd nKdkXWEhpJ1pMCMqiHGm vCpjOA2sTAThicztRaTR E7qDXXJWZluDDS5RYGAW SVpBQkVUSDwvdGQ+ VLGkXKH4eVgxBZqiEDIx xF5lGSSrG4z9SeVaToR0 BTmzT3DaHSKyiuhdOj42 yM7vZrFnTrK2VZwc H5DuemH9MMZnyNWpUYvw TJU0W97nz8V2WQGqIHEd UYA0pYK6dS0bfZkftogd bGVmdDsgdmVydGlj SKwbAYvjG486PMDwqBbr WsS4EoR6EzDuCRW6K6Be Mnb5CMSdsJgyCE2raUVq MEeoEa3ctMikaWrn SJ6lJVGtgnzdIUEeuS0q PBXxqMDctYauKC7rYXQb venrs264RcNhYEK7IFZw tUWoA9GrjQ6kMvVj CQQxCADfK8CctTXeYOoh O674JJcbXzG1YMIifkJg M9PlKFSftRyxDzL8j5E3 Xj8mTCMIPWIvfznz dGQ+LYFxRGV6fIplJXsr IQHrgB1aJBCfV4l1UrBy SxI4SSqdG6BmPYEgekma Qj34iU2aSqDlReQ4 MCqeZ9SmyxT8ZLUyaYMb LLxfGKR1S36ew6D1DLOa UTItFNC1qVG5iY4wpDvk bjogbGVmdDsgdmVy mSskBGcdXOmnQ542CHUb cDsnPkZFTUFMRTwvdGQ+ ZSMzTPM9kPfhGZcnQIXu rD1dQTElE4l2QiWr ZiO4HTbfO2QvACDpaivj Vy74bK1pOzUoAgS5QVkm E2GpcvW4YRFrvNKkSLqv NPW1Z80xu0X1AXOo OOBsFHN7vOU2iY7aeQwo bjogbGVmdDsgdmVydGlj IEdkSNfrE701IAUgkJaf Xh2EAP13XG29G3Lp PjwvdGFibGU+PHRhYmxl IHdpZHRoPScxMDAlJyBz hIbrGX4eMu3dEIDwFDPp bDmxjLIfRlSni9ov SWLzLRcrWU5ufKbfN0Xh yCQ7VTHdu8x8Qn93X64r N7LqlVL+FFEygJN2zEP7 aP7cVqFvYuB8UTsi O230RvAdtXWjBjmmc7en f6sbiEd9HvZeGLVeneAw cHhyTDQ9j0PbZx91T94e IHdpZHRoPSIyMCUi VHPlcLnbix9qpU4aTk7+ QKNtsTM0cCW3jB6sPuNj HlE3QVtwX985CuAefQSu CepvU01nH1MybTO+ YYKaMcv7DBIojWweWB0p wPKuKOjlMk6dWXZ9CmNp KzQwURrdZ8ZuRLKdnanp ajeijAD0JZVnEYTy zV61Dk7puFryTe1wFHVs YCI5LTHliFGmZ9YqwS8x UoVoJXLvZFLrO0WvkYSp SZusA800LBggEcY2 IOWyztEkD6GlEDThaUzv YjR9i5K8Bb1QbRlatEUx LA2hLjLjHLh7Q8OjYfs0 RJEqqZxaYP4qxPMv KEubZz9bbBtchZalWE1a DTDywumnd518RnLkc8vb ZANxlAWrJPrzIDK7Q44l w7T9KHUyFDUoSFN1 lCF7yQ7riHxyylzjgWJd dDsgdmVydGljYWwtYWxp O956SURmkXriUkHYNqr5 X3JwOsg4ORDamFiy FG0zcWBuKRcjWx5eqQxm lTddQA2jKFZhpqwli984 TkBxl4bpTBHttMLbNWhg BSX7M15io5T5MBIn UEOhKSZ7bZH5fQ9abUin bjogbGVmdDsgdmVydGlj STgvUWsyF626VHZwhGtd Zt7WRoo9F5FwJvs2 XMAatJacRG1fkCKrUDyh Pw3lpIlzrPygKO3tOAGn cmhau019WhKmj2gfUSNi eWTgLOcpWRK1Q27l z4X7MYVmOJHvZFP5gLP2 zI7tiOxtydgreNGegRwu xcAaeKofBTjwFAarO402 IHRvcDsnPlBheWVy OjwvdGQ+CL15cf64X1Ks BtjeIan6FUZsHLK3tZF2 wG9lVPYdDQygx0H4vSE6 S0UbjlRhfd9pk6vy YXB (more content not included)... Normal [facility] Provider Orderson 07-26-2021 Provider Orders [id number] #[id number] Normal [facility] .Auto Diff 1on 07-25-2021 Auto [place] % 7 % Normal 12 [facility] Comment on above: Performed By: #### 7 [id number], [id number], [id number], [id number] #### [facility] (DEFAULT) [address] [place] [address] Baso Abs# 0.0 x10 Normal 0.0-0.2 [facility] Comment on above: Performed By: #### 7 [id number], [id number], [id number], [id number] #### [facility] (DEFAULT) [address] [place] [address] Basophils/100 WBC (Bld) 0.2 % Normal 0.2-2.0 [facility] Comment on above: Performed By: #### 7 [id number], [id number], [id number], [id number] #### [facility] (DEFAULT) [address] [place] [address] 499[address] Eos Abs# 0.1 x10 Normal 0.0-0.4 [facility] Comment on above: Performed By: #### 7 [id number], [id number], [id number], [id number] #### [facility] (DEFAULT) [address] [place] [address] 43086 Eosinophils/100 WBC (Bld) 1.2 % Normal 0.9-4.0 [facility] Comment on above: Performed By: #### 7 [id number], [id number], [id number], [id number] #### [facility] (DEFAULT) [address] [place] [address] Lymph Abs# 1.9 x10 Normal 1.3-2.9 [facility] Comment on above: Performed By: #### 7 [id number], [id number], [id number], [id number] #### [facility] (DEFAULT) [address] [place] [address] Lymphocytes/100 WBC (Bld) 24 % Normal 14-48 [facility] Comment on above: Performed By: #### 7 [id number], [id number], [id number], [id number] #### [facility] (DEFAULT) [address] [place] [address] [place] Abs# 0.6 x10 Normal 0.0-0.8 [facility] Comment on above: Performed By: #### 7 [id number], [id number], [id number], [id number] #### [facility] (DEFAULT) [address] [place] [address] Neut Abs# 5.6 x10 Normal 1.5-9.2 [facility] Comment on above: Performed By: #### 7 [id number], [id number], [id number], [id number] #### [facility] (DEFAULT) [address] [place] [address] Neutrophils/100 WBC (Bld) 68 % Normal 44-88 [facility] Comment on above: Performed By: #### 7 [id number], [id number], [id number], [id number] #### [facility] (DEFAULT) [address] [place] [address] CBC w/ Auto Diffon Erythrocyte distribution width (RBC) [Ratio] 12.5 % Normal 11.5-15.0 [facility] Comment on above: Performed By: #### 7 [id number], [id number], [id number], [id number] #### [facility] (DEFAULT) [address] [place] [address] Hematocrit (Bld) [Volume fraction] 39.1 % Normal 33.7-40.4 [facility] Comment on above: Performed By: #### 7 [id number], [id number], 5122127, [id number] #### [facility] (DEFAULT) [address] [place] [address] 578[address] Hemoglobin (Bld) [Mass/Vol] 12.7 g/dL Normal 11.3-15.9 [facility] Comment on above: Performed By: #### 7 [id number], [id number], 5603207, [id number] #### [facility] (DEFAULT) [address] [place] [address] 41300 Instr WBC 8.2 x10 Invalid Interpretation Code [facility] Comment on above: Performed By: #### 7 [id number], [id number], [id number], [id number] #### [facility] (DEFAULT) [address] [place] [address] 81207 Man Diff? Auto Normal [facility] Comment on above: Performed By: #### 7 [id number], [id number], [id number] #### [facility] (DEFAULT) [address] [place] [address] 41958 MCH (RBC) [Entitic mass] 29 pg Normal 24-34 [facility] Comment on above: Performed By: #### 7 [id number], [id number] #### [facility] (DEFAULT) [address] [place] [address] 23996 MCHC (RBC) [Mass/Vol] 32 g/dL Normal 26-37 [facility] Comment on above: Performed By: #### 7 [id number], [id number] #### [facility] (DEFAULT) [address] [place] [address] 74015 MCV (RBC) [Entitic vol] 90 fL Normal 81-100 [facility] Comment on above: Performed By: #### 7 [id number], [id number] #### [facility] (DEFAULT) [address] [place] [address] 02429 Platelet 276 x10 Normal 138-427 [facility] Comment on above: Performed By: #### 7 [id number], [id number], [id number], [id number] #### [facility] (DEFAULT) [address] [place] [address] [id number] Platelet mean volume (Bld) [Entitic vol] 10.6 fL High 6.3-10.2 [facility] Comment on above: Performed By: #### 7 [id number], [id number], [id number], [id number] #### [facility] (DEFAULT) [address] [place] [address] 38259 RBC 4.33 x10 Normal 3.70-5.30 [facility] Comment on above: Performed By: #### 7 [id number], [id number], [id number], [id number] #### [facility] (DEFAULT) [address] [place] [address] 42077 WBC 8.2 x10 Normal 3.5-10.5 [facility] Comment on above: Performed By: #### 7 [id number], [id number], [id number], [id number] #### [facility] (DEFAULT) [address] [place] [address] 38143 Glucoseon 07-25-2021 Glucose [Mass/Vol] 103.0 mg/dL Normal 56.0-144.0 [facility] Comment on above: Performed By: #### 7 [id number], [id number], [id number], [id number] #### [facility] (DEFAULT) [address] [place] [address] 91586 TSHon 07-25-2021 TSH Qn 1.35 m[IU]/L Normal 0.45-5.33 [facility] Comment on above: Result Comment: Gene ral Population (males and non- females, aged 21-88) 0.45 - 5.33 Females, 1st Trimester 0.05 - 3.70 Females, 2nd Trimester 0.31 - 4.35 Females, 3rd Trimester 0.41 - 5.18 Performed By: #### 7 [id number], [id number], [id number], [id number] #### [facility] (DEFAULT) [address] [place] [address] 72930 Vital Signs Date Time Vital Sign Value Performing Clinician Facility 11-18-2023 14:00-0500 Body height 162.56 cm Edu Abel Other [facility] Other 11-18-2023 14:00-0500 Body mass index (BMI) [Ratio] 40.33 kg/m2 Edu Abel Other [facility] Other 11-18-2023 14:00-0500 Body weight 106.6 kg Edu Abel Other [facility] Other 11-18-2023 14:00-0500 Diastolic blood pressure 80 mm[Hg] Edu Abel Other [facility] Other 11-18-2023 14:00-0500 Respiratory rate 20 /min Edu Abel Other [facility] Other 11-18-2023 14:00-0500 SaO2% (BldA) [Mass fraction] 98 % Edu Abel Other [facility] Other 11-18-2023 14:00-0500 Systolic blood pressure 128 mm[Hg] Edu Abel Other [facility] Other 10-21-2022 15:45-0500 Body height Michael Wilson Other [facility] Other 10-21-2022 15:45-0500 Body mass index (BMI) [Ratio] 34.33 kg/m2 Michael Wilson Other [facility] Other 10-21-2022 15:45-0500 Body temperature 98.6 [degF] Michael Wilson Other [facility] Other 10-21-2022 15:45-0500 Body weight 90.72 kg Michael Wilson Other [facility] Other 10-21-2022 15:45-0500 Diastolic blood pressure 90 mm[Hg] Michael Wilson Other [facility] Other 10-21-2022 15:45-0500 Respiratory rate 20 /min Michael Wilson Other [facility] Other 10-21-2022 15:45-0500 SaO2% (BldA) [Mass fraction] 98 % Michael Wilson Other [facility] Other 10-21-2022 15:45-0500 Systolic blood pressure 135 mm[Hg] Michael Wilson Other [facility] Other 10-04-2022 10:27-0500 Body temperature 98.3 [degF] [employer] MARKETING CO[employer]ATOR[employer]BC Lela Bullimore Work Phone: [facility] 10-04-2022 10:27-0500 Diastolic blood pressure 97 mm[Hg] INTERNET MARKETING COORDINATOR-BC Lela Bullimore Work Phone: [facility] 10-04-2022 10:27-0500 Heart rate 93 /min INTERNET MARKETING COORDINATOR[employer]BC Lela Bullimore Work Phone: [facility] 10-04-2022 10:27-0500 Respiratory rate 20 /min INTERNET MARKETING COORDINATOR-BC Lela Bullimore Work Phone: [facility] [facility] 10-04-2022 10:27-0500 SaO2% (BldA) [Mass fraction] 100 % INTERNET MARKETING COORDINATOR-BC Lela Bullimore Work Phone: [facility] 10-04-2022 10:27-0500 Systolic blood pressure 137 mm[Hg] INTERNET MARKETING COORDINATOR-BC Lela Bullimore Work Phone: [facility] 06-04-2022 09:10-0400 Diastolic blood pressure 75 mm[Hg] [facility] 06-04-2022 09:10-0400 Heart rate 88 /min [facility] 06-04-2022 09:10-0400 Respiratory rate 16 /min [facility] 06-04-2022 09:10-0400 SaO2% (BldA) [Mass fraction] 96 % [facility] 06-04-2022 09:10-0400 Systolic blood pressure 143 mm[Hg] [facility] 06-04-2022 07:42-0400 Body height 162.56 cm [facility] 06-04-2022 07:42-0400 Body temperature 97.9 [degF] [facility] 06-04-2022 07:42-0400 Body weight 90.71 kg [facility] Encounters Encounter Date Encounter Type Care Provider Facility Start: 11-18-2023 End: 11-18-2023 ambulatory Edu Mcdonaldmer Other [facility] Other Start: 11-18-2023 Encounter for genera l adult medical examination without abnormal findings Edu Abel [facility] [place] Start: 11-18-2023 Periodic preventive med est patient 18-39 yrs Edu Abel [facility] [place] Start: 10-31-2023 End: 10-31-2023 ambulatory TORSTEN GOVEA Not Available Start: 10-20-2023 End: 10-20-2023 ambulatory ERAN JASMIN Not Available Start: 09-15-2023 End: 09-15-2023 ambulatory ERAN JASMIN Not Available Start: 09-02-2023 End: 09-02-2023 ambulatory ERAN JASMIN Not Available Start: 08-26-2023 End: 08-26-2023 ambulatory ERAN JASMIN Not Available Start: 03-10-2023 End: 03-11-[address] GAVIN WINTERS . Facility:[facility] Start: 2023 End: 02-07-[address] GAVIN WINTERS . Facility:[facility] Start: 02-05-2023 End: [address] GAVIN WINTERS . 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 Lela Zavala Work Phone: [facility] Work Phone: Start: 06-04-2022 End: 06-04-2022 Emergency department patient visit NON STAFF Facility:[facility] Start: 06-04-2022 End: 06-04-2022 Emergency department patient visit [facility] Start: 10-13-2021 End: 10-13-2021 ambulatory Jayson Perea Facility:[facility] Procedures Date Procedure Procedure Detail Performing Clinician Start: 06-04-2022 US scan of gallbladder Plan of Treatment Date Care Activity Detail Author Patient Education [facility] Work Phone: Patient referral [facility] Work Phone: Payers Date Payer Category Payer Self-pay [id number] 2003 Unknown [id number] 2.16.84 [id number] 2003 Unknown [id number] 2.16.84 [id number] 2003 Unknown [id number] 2.16.84 [id number] 2003 Unknown [id number] 2.16.84 [id number] 2003 Unknown [id number] 2.16.84 [id number] 2003 Unknown [id number] 2.16.840 .[id number] 2003 Unknown [id number] 2.16.840 .[id number] 2003 Unknown [id number] [id number]. [id number] 1959 Unknown [id number] Unknown [id number] 2.16.8 [id number] Unknown [id number] 2.16.8 [id number] Unknown [id number] 2.16.8 [id number] Social History Date Type Detail Facility Start: 06-04-2022 Tobacco smoking status RUST Ex-smoker (finding) [facility] Start: 2005 Sex Assigned At Female F [facility] Start: 10-04-2022 Tobacco smoking status RUST Never smoked tobacco (finding) [facility] Sex Assigned At Sex Assigned At [place] [employer] Other Evaluation note 11-18-2023 Note Date & Type Note Facility 11-18-2023 Evaluation note Encounter Date Diagnosis Assessment Notes Nov, Well adult exam (ICD-10 - Z00.00) 18-year-old female who is overall very healthy but does have some increasing anxiety and has not done well with Prozac in the past. She did have a complete workup yesterday in the emergency room due to having some chest pains and some difficulty breathing. The workup was completely normal and this was reviewed with her today in the office. No concerning findings of blood clots in the wounds or cardiac issues. This does appear to be a combination of reflux as well as anxiety. Will start patient on Lexapro 10 mg daily and she is to call right away if there is any problems with the medication. She will follow-up in 4 to 6 weeks to reassess how she is doing. Did instruct her that if anxiety improves but she is still having the central sternal chest discomfort I would recommend getting on a daily medication for reflux of weeks for a period of time to see how much this discomfort is related to GERD. For now she will continue with the as needed Tums. Nov, Anxiety (ICD-10 - F41.9) Nov, Factor 5 Leiden mutation, heterozygous (ICD-10 - D68.51) Nov, Gastroesophageal reflux disease with esophagitis without hemorrhage (ICD-10 - K21.00) She states tums help enough with the heartburn and she only takes it occasionaly so she doesn't want to try anything different at this time. [facility] Other History general Narrative - Reported 09-08-2023 Note Date & Type Note Facility 09-08-2023 History general N arrative - Reported Type Medical History anxiety Medical History IBS Medical History factor V leiden Surgical History 09/08/2023 Hospitalization History see above [facility] Other Evaluation note 10-21-2022 Note Date & [...] Pt understood and agreed to treatment plan. [facility] Other Evaluation note Note Date & Type Note Facility Evaluation note No assessment information availa ble [facility] Work Phone: Hospital Discharge instructions Note [...] loss of hearing or any other concerns [facility] Work Phone: Summary Purpose Family History No Family History Records FoundNo Family History Records FoundNo Family History Records FoundNo Family History Records Found Advance Directives Advance Directive Response Recorded Date/ Time Advance Directives No October 13, 2021 8:54am Advance Directive Response Recorded Date/ Time Advance Directives No October 13, 2021 7:54am Chief Complaint and Reason for Visit Chief Complaint abd pain Chief Complaint L ear pain Additional Source Comments INFORMATION SOURCE (unrecogn ized section and content) DATE CREATED AUTHOR 07/29/2021 [facility] DATE CREATED AUTHOR AUTHOR'S ORGANIZ ATION 10/05/2022 [facility] DATE CREATED AUTHOR AUTHOR'S ORGANIZ ATION 03/20/2023 [facility] DATE CREATED AUTHOR AUTHOR'S ORGANIZ ATION 11/01/2023 [facility] EPIC Care Teams (unrecognized sec tion and content) Team Status: Inactive Member Role Status Dates NON STAFF Primary Care Provider Active Cory Lala DO Emergency Provider Active Team Status: Active Member Role Status Dates NON STAFF Primary Care Provider Active Team Status: Inactive Member Role Status Dates Lela Zavala , [facility] Emergency Provider Active Karen Smith MD Primary Care Provider Active Team Status: Active Member Role Status Dates Karen Smith MD Primary Care Provider Active Goals (unrecognized section and content) Goals may be documented in a n alternate sectionGoals may be documented in an alternate sectionNo InformationNo Information REASON FOR VISIT (unrecogniz ed section and content) SWOLLEN TONSILS, NAUSEAEST P CP FOR RECORDS PERTAINING TO PATIENTS WHO ARE [...] BE BASED ON THE PRIMARY CLINICAL RECORDS. [facility]. provides no warranty or guarantee of the accuracy or completeness of information in this document.
[2023-11-22] MEDS: 0.9 % SODIUM CHLORIDE 1,000 ML 1000 ML IV (13:15)
[2023-11-22] MEDS: ONDANSETRON PF 4 MG/2 ML VIAL IV (13:17)
[2023-11-22 13:20] LABS: Basophils Percent Auto 0.3 % (0.2-2.0); Eosinophils Absolute Auto 0.1 10^3/uL (0.0-0.7); Eosinophils Percent Auto 0.6 % (0.9-7.0); Hemoglobin 11.7 g/dL (12.0-16.0); Immature Granulocytes Abs Auto 0.04 10^3/uL (0.00-0.03); Immature Granulocytes Pct Auto 0.4 % (0.0-0.5); Lymphocytes Absolute Auto 2.3 10^3/uL (1.2-3.8); Lymphocytes Percent Auto 21.8 % (20.5-60.0); Mean Corpuscular Hemoglobin 25.5 pg (26.7-34.0); Mean Platelet Volume 11.4 fL (9.5-13.5); Monocytes Absolute Auto 0.7 10^3/uL (0.3-0.8); Monocytes Percent Auto 6.5 % (1.7-12.0); Neutrophils Absolute Auto 7.5 10^3/uL (1.4-6.5); Neutrophils Percent Auto 70.4 % (43.0-75.0); Platelet Count 295 10^3/uL (150-450); Red Blood Count 4.59 10^6/uL (4.20-5.40); White Blood Count 10.6 10^3/uL (4.0-11.0)
[2023-11-22 13:22] LABS: Bilirubin Urine NEGATIVE (NEGATIVE); Blood Urine NEGATIVE (NEGATIVE); Clarity Urine CLEAR (CLEAR); Color Urine LT. YELLOW (YELLOW); Glucose Urine UA NEGATIVE (NEGATIVE); Ketones Urine NEGATIVE (NEGATIVE); Leukocyte Esterase Urine NEGATIVE (NEGATIVE); Nitrite Urine NEGATIVE (NEGATIVE); Protein Urine NEGATIVE (NEG/TRACE); Specific Gravity Urine 1.015 (1.005-1.025); Urobilinogen Urine 0.2 EU/dL (0.2-1.0)
[2023-11-22 13:29] LABS: Urine Microscopic Indicated NO
[2023-11-22 13:32] LABS: Alanine Aminotransferase 57 U/L (14-59); Albumin Globulin Ratio 0.8; Albumin Level 3.6 g/dL (3.4-5.0); Alkaline Phosphatase 86 U/L (46-116); Anion Gap 13.2; Aspartate Amino Transferase 24 U/L (15-37); BUN Creatinine Ratio 14.1; Bilirubin Total 0.2 mg/dL (0.2-1.0); Calcium 8.8 mg/dL (8.5-10.1); Carbon Dioxide 26.4 mmol/L (21.0-32.0); Chloride 103 mmol/L (98-107); Estimated GFR (African America >60 (>=60); Estimated GFR (Non-African Ame >60 (>=60); Globulin 4.8 g/dL; Glucose 114 mg/dL (74-106); Potassium 3.6 mmol/L (3.5-5.1); Sodium 139 mmol/L (136-145); Total Protein 8.4 g/dL (6.4-8.2)
[2023-11-22 13:35] LABS: HCG Qualitative NEGATIVE (NEGATIVE)
--- NOTE | 2023-11-22 13:54 | CT_ITS ---
[place] [id number] Patient Name: FELIX ASKEW MRN: [id number] date: 2005 Sex: F Assigned Patient Location: ER Current Patient Location: ER Accession/Order Number: [id number] Exam Date: 11/22/2023 14:30 Report Date: 11/22/2023 15:08 At the request of: OVI SWEET Procedure: CT abdomen pelvis wo con EXAMINATION: CT abdomen pelvis wo con, 11/22/2023 2:30 PM EST HISTORY: Right flank pain COMPARISON: None. TECHNIQUE: CT scan of the abdomen and pelvis was performed without IV contrast. CT dose reduction technique was used, including Automated Exposure Control. FINDINGS: LOWER CHEST: The visualized lungs are clear. LIVER: Unremarkable. GALLBLADDER AND BILIARY SYSTEM: Unremarkable. SPLEEN: Unremarkable. PANCREAS: Unremarkable. ADRENAL GLANDS: Unremarkable. KIDNEYS AND URETERS: No nephrolithiasis or hydronephrosis. No ureteral calculus. BLADDER: Unremarkable. GASTROINTESTINAL TRACT: No evidence of bowel obstruction or colitis. Normal appendix. VASCULATURE: The abdominal aorta is normal in caliber. RETROPERITONEUM: No lymphadenopathy. PERITONEUM/MESENTERY: No abdominal ascites. No free air. PELVIS: Trace amount of free fluid in the pelvis. No lymphadenopathy. BODY WALL: Small fat-containing umbilical hernia. BONES: No acute abnormality. CT/CT abdomen pelvis wo con IMPRESSION: 1. No nephrolithiasis or hydronephrosis. 2. Trace amount of free fluid in the pelvis. Electronically authenticated by: ROMINA ORTIZ Date: 11/22/2023 15:08
[2023-11-22] MEDS: FAMOTIDINE/PF 20 MG/2 ML VIAL IV (14:13)
[2023-11-22] MEDS: KETOROLAC TROMETHAMINE 30 MG/ML VIAL 15 MG IVP (14:14)
--- NOTE | 2023-11-22 15:43 | ED_ITS ---
HPI - Abdominal Pain General Chief Complaint: Abdominal Pain Stated Complaint: R SIDE PAIN Time Seen by Provider: 11/22/23 12:57 Source: patient Mode of arrival: ambulance Limitations: no limitations History of Present Illness HPI narrative: The patient is coming to us with a 24 hours history of right flank pain associated with a frontal headache and nausea. The patient denies any burning with urination any frequency any blood in urine, the patient pain in the right flank does not radiate to the groin but it does radiate to the front of the abdomen, it is induced with movement and it not spasmodic. She had no history of kidney stone the patient also had a normal delivery on August 2023 and she is not breast-feeding No other complaints Related Data Home Medications Medication Instructions Recorded Confirmed norethindrone 1 mg-ethinyl 1 tab PO DAILY 11/16/23 11/16/23 estradiol 20 mcg (21)-iron 75 mg (7) tablet (Chandler Fe 10/31 (28)) Previous Rx's Medication Instructions Recorded hydroxyzine pamoate 25 mg capsule 25 mg PO Q6H PRN anxiety #20 caps 11/16/23 (Vistaril) ketorolac 10 mg tablet 10 mg PO TID PRN pain #10 tabs 11/16/23 orphenadrine citrate 100 mg 100 mg PO DAILY muscle spasm #7 11/22/23 tablet,extended release tabs Allergies Allergy/AdvReac Type Severity Reaction Status Date / Time No Known Drug Allergies Allergy Verified 11/16/23 19:09 Review of Systems ROS Status of ROS 10 or more systems reviewed and unremark able except as noted in history and below [facility] Medical History (Updated 11/22/23 @ 15:41 by Naya Krishna MD) IBS (irritable bowel syndrome) ?K58.9 - Irritable bowel syndrome without diarrhea (ICD-10) 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 General: Well-appearing and in no apparent distress. Skin: Warm, dry, no pallor noted. No rash. Head: Normocephalic, atraumatic. Neck: Supple, non-tender. Eye: Pupils are equal, round and EOMI. No scleral icterus. Ears, Nose, Mouth, and Throat: TM are clear, no nasal mucosal hypertrophy. Oral mucosa is moist, no posterior oropharynx erythema, uvula is mid-line Cardiovascular: Regular Rate and Rhythm without murmur, gallop or rub. Respiratory: No accessory muscle use or respiratory distress. Lungs are clear to auscultation, no wheezing, rales or rhonchi Chest Wall: no tenderness Back: No midline thoracic or lumbar vertebral tenderness. There is 10 patient with a right upper paraspinal muscle at the upper lumbar level no CVA tenderness Musculoskeletal: normal ROM, no calf or popliteal tenderness, no lower extremity edema/swelling GI: Abdomen is soft, non-distended. Normal bowel sounds. No masses appreciated. No tenderness to palpation. No rebound, guarding, or rigidity noted. Neurological: A&O x4. No cranial nerve dysfunction observed. No truncal ataxia. Moves all extremities. Sensation intact. Psychiatric: Cooperative and interactive. Normal mood and affect. Constitutional Vital Signs, click to edit/add: Last Vital Signs Temp 98.0 F 11/22/23 12:52 Pulse 82 11/22/23 15:44 Resp 18 11/22/23 12:52 BP 139/95 H 11/22/23 15:44 Pulse Ox 98 11/22/23 15:44 Course Vital Signs Vital signs: Vital Signs Temperature 98.0 F 11/22/23 12:52 Pulse Rate 98 H 11/22/23 12:52 Respiratory Rate 18 11/22/23 12:52 Blood Pressure 146/95 H 11/22/23 12:52 Pulse Oximetry 98 11/22/23 12:52 Temperature 98.0 F 11/22/23 12:52 Pulse Rate 82 11/22/23 15:44 Respiratory Rate 18 11/22/23 12:52 Blood Pressure 139/95 H 11/22/23 15:44 Pulse Oximetry 98 11/22/23 15:44 MDM - Abdominal Pain MDM Narrative Medical decision making narrative: CBC chemistry showed no acute pathology and the patient had a negative test with no UTI CAT scan of the abdomen showed no acute significant pathology and the patient was feeling better after being treated with Toradol Patient already have a prescription of Toradol at home that she is not taking and she will start taking it right now as needed for pain every 8 hours The patient is to follow up with primary care physician in next 2-3 days or to return to the emergency department should any of the signs or symptoms worsen or new symptoms develop. The patient agrees with the following Diagnosis and Treatment plan and the patient will be discharged home. Lab Data Labs: Lab Results 11/22/23 11/22/23 Range/Units 13:00 13:07 WBC 10.6 (4.0-11.0) 10^3/uL RBC 4.59 (4.20-5.40) 10^6/uL Hgb 11.7 L (12.0-16.0) g/dL Hct 39.0 (36.0-48.0) % MCV 85.0 (81.0-99.0) fL MCH 25.5 L (26.7-34.0) pg MCHC 30.0 (29.9-35.2) g/dL RDW 14.0 (11.0-15.0) % Plt Count 295 (150-450) 10^3/uL MPV 11.4 (9.5-13.5) fL Neut % (Auto) 70.4 (43.0-75.0) % Lymph % (Auto) 21.8 (20.5-60.0) % [place] % (Auto) 6.5 (1.7-12.0) % Eos % (Auto) 0.6 L (0.9-7.0) % Baso % (Auto) 0.3 (0.2-2.0) % Neut # (Auto) 7.5 H (1.4-6.5) 10^3/uL Lymph # (Auto) 2.3 (1.2-3.8) 10^3/uL [place] # (Auto) 0.7 (0.3-0.8) 10^3/uL Eos # (Auto) 0.1 (0.0-0.7) 10^3/uL Baso # (Auto) 0.0 (0.0-0.1) 10^3/uL Abs Immat Gran (auto) 0.04 H (0.00-0.03) 10^3/uL Imm/Tot Granulo (auto) 0.4 (0.0-0.5) % Sodium 139 (136-145) mmol/L Potassium 3.6 (3.5-5.1) mmol/L Chloride 103 (98-107) mmol/L Carbon Dioxide 26.4 (21.0-32.0) mmol/L Anion Gap 13.2 BUN 12.0 (7.0-18.0) mg/dL Creatinine 0.85 (0.55-1.02) mg/dL Est GFR ( Amer) >60 (>=60) Est GFR (Non-Af Amer) >60 (>=60) BUN/Creatinine Ratio 14.1 Glucose 114 H (74-106) mg/dL Calcium 8.8 (8.5-10.1) mg/dL Total Bilirubin 0.2 (0.2-1.0) mg/dL AST 24 (15-37) U/L ALT 57 (14-59) U/L Alkaline Phosphatase 86 (46-116) U/L Total Protein 8.4 H (6.4-8.2) g/dL Albumin 3.6 (3.4-5.0) g/dL Globulin 4.8 g/dL Albumin/Globulin Ratio 0.8 Serum HCG, Qual Negative (NEGATIVE) Urine Color Lt. yellow (YELLOW) Urine Clarity Clear (CLEAR) Urine pH 7.0 (5.0-9.0) Ur Specific [place] 1.015 (1.005-1.025) Urine Protein Negative (NEG/TRACE) mg/dL Urine Glucose (UA) Negative (NEGATIVE) mg/dL Urine Ketones Negative (NEGATIVE) mg/dL Urine Occult Blood Negative (NEGATIVE) Urine Nitrite Negative (NEGATIVE) Urine Bilirubin Negative (NEGATIVE) Urine Urobilinogen 0.2 (0.2-1.0) EU/dL Ur Leukocyte Esterase Negative (NEGATIVE) Discharge Plan Discharge Chief Complaint: Abdominal Pain Clinical Impression: Flank pain Patient Disposition: Home, Self-Care Time of Disposition Decision: 15:41 Condition: Good Prescriptions / Home Meds: New orphenadrine citrate 100 mg tablet extended release 100 mg PO DAILY Qty: 7 0RF No Action norethindrone-e.estradiol-iron [Chandler Fe 10/31 (28)] 1 mg-20 mcg (21)/75 mg (7) tablet 1 tab PO DAILY ketorolac 10 mg tablet 10 mg PO TID PRN (Reason: pain) Qty: 10 0RF hydroxyzine pamoate [Vistaril] 25 mg capsule 25 mg PO Q6H PRN (Reason: anxiety) Qty: 20 0RF Instructions: Flank Pain (ED) Stand Alone Forms: Portal Instructions Referrals: GINA RODRIGEZ [Primary Care Provider] - 1 week Discharge Date/Time: 11/22/23 15:47
[2023-11-22 15:44] VITALS: BP 139/95; PULSE 82; O2SAT 98
== END 2023-11-22 15:47 | disposition home or self-care (01) ==
PROVIDERS: Emergency Provider Emergency Medicine
DX: R10.9 Unspecified abdominal pain (principal); D68.2 Hereditary deficiency of other clotting factors; K58.9 Irritable bowel syndrome, unspecified; Z87.891 Personal history of nicotine dependence; Z79.899 Other long term (current) drug therapy
CPT/HCPCS: 36415; 74176; 80053; 81003; 84703; 85025; 96374; 96375; 99285; J1885; J2405

== ENCOUNTER 2024-10-20 19:54 | Outpatient (REF) | payer OTHER, SELFPAY ==
[2024-10-26 11:09] LABS: Age Gdln ACOG Testing Note (.); IGP, rfx Aptima HPV ASCU Note (.)
== END 2024-10-20 19:55 | disposition home or self-care (01) ==
LOC: LAB 19:54
PROVIDERS: Visit Provider Physician Assistant
DX: Z01.419 Encounter for gynecological examination (general) (routine) without abnormal findings (principal)
CPT/HCPCS: 88175